=== PATIENT | female | born 1945 | race Caucasian/White ===

== ENCOUNTER 2017-08-28 07:20 | Day surgery (SDC) | payer OTHER, BC ==
[2017-08-27 10:18] VITALS: BMI 24.7
[2017-08-28 07:50] VITALS: TEMP 97.4
[2017-08-28] MEDS ORDERED: LIDOCAINE HCL/PF 2% SDV 5ML VIAL ONE (07:50)
[2017-08-28] MEDS ORDERED: PROPOFOL 20 ML ONE ×4 (07:51)
[2017-08-28 09:59] VITALS: BP 119/71; PULSE 79
--- NOTE | 2017-08-31 11:14 | PATH ---
Surgical Pathology Report Patient Name: NORMA DUTTA [facility]. Rec. #: [id number] /Age/Gender: 1945 (Age: 71) / F Account: [id number] Location: U-ENDOSCOPY Taken: 08/28/2017 Received: 08/28/2017 Reported: 08/31/2017 Physicians: Darcy Choi M.D. Specimen(s) Received A: CECAL POLYP B: PROXIMAL TRANSVERSE COLON Clinical History Preoperative diagnosis: Colon cancer screening, change in bowel habits Postoperative diagnosis: Colon polyps, diverticulosis Final Diagnosis A. COLON, CECUM, SNARE POLYPECTOMY: TUBULAR ADENOMA. B. COLON, PROXIMAL TRANSVERSE, SNARE POLYPECTOMY: COLONIC POLYP WITH SERRATED ARCHITECTURE AND FEATURES SUGGESTIVE OF SESSILE POLYP. Comment: Sessile serrated polyps are not dysplastic (adenomatous). They share morphologic features with hyperplastic polyps and, in the past, have been referred to as such. However, recent studies indicate that they harbor BRAF mutations and may represent neoplastic precursors to a subset of sporadic, microsatellite unstable colon cancers. They are generally treated and followed similar to colonic adenomas. PALOMA Grissom and NATALIA Herr [facility] 2010, 139(5):[id number]. Electronically Signed Ace Ramirez M.D. Gross Description A. Received in formalin, labeled "cecal polyp" is a acharya, irregular portion of soft tissue measuring 0.3 cm. in greatest dimension. The specimen is submitted in toto in one cassette. B. Received in formalin, labeled "proximal transverse colon" is a acharya, irregular portion of soft tissue measuring 0.2 cm. in greatest dimension. The specimen is submitted in toto in one cassette. 08/28/201708/28/2017
== END 2017-08-28 10:00 | disposition home or self-care (01) ==
LOC: JASU-ENDO 07:20
PROVIDERS: ATTEND Internal Medicine Gastroenterology
PROC: 0DBL8ZX Excision of Transverse Colon, Via Natural or Artificial Opening Endoscopic, Diagnostic (ICD-10-PCS; 2017-08-28)
PROC: 0DBH8ZX Excision of Cecum, Via Natural or Artificial Opening Endoscopic, Diagnostic (ICD-10-PCS; principal; 2017-08-28 08:00)
DX: Z12.11 Encounter for screening for malignant neoplasm of colon (principal); D12.0 Benign neoplasm of cecum; D12.3 Benign neoplasm of transverse colon; K57.30 Diverticulosis of large intestine without perforation or abscess without bleeding; K64.8 Other hemorrhoids
CPT/HCPCS: 88305-TC

== ENCOUNTER 2018-04-04 10:04 | Inpatient (IN) | payer OTHER, BC ==
[2018-04-04] MEDS ORDERED: ALBUTEROL SO4 2.5/IPRATROPIUM 0.5 INH SOL 3 ML VIAL.NEB. NEB ONE ×2 (10:34→10:38)
[2018-04-04] MEDS ORDERED: MAG HYDROX/AL HYDROX/SIMETH 30 ML UNIT-DOSE CUP PO ONE (10:34)
--- NOTE | 2018-04-04 10:34 | PDOC ---
History of Present Illness <Tenzin Reno - Last Filed: 04/04/18 15:40> - General History Source: Patient Exam Limitations: No Limitations - History of Present Illness Initial Comments: 04/04/18 10:30 72-year-old female history of hiatal hernia with reflux, anemia, here today complaining of cough nasal congestion and now difficulty swallowing. Patient states that she was seen 1 week ago and diagnosed a viral URI. She was prescribed an inhaler but was unable to fill it at that time since then she's had a worsening cough now feels irritation with deep breathing causing her to cough increased mucus production. She also describes nasal congestion this morning had some epistaxis upon blowing her nose no fever but does feel chilled no chest pain no leg swelling. Patient states she has been on ranitidine and previously was on a pump inhibitor but since has discontinued. Patient is followed by Dr. Ibarra clipper counters <Alyson Martinez - Last Filed: 04/04/18 15:45> - General Chief Complaint: Dysphagia Stated Complaint: DIFF SWALLOWING Time Seen by Provider: 04/04/18 10:29 Past History <Tenzin Reno - Last Filed: 04/04/18 15:40> - Past Medical History Anemia: Yes (PERNICIOUS ANEMIA) Asthma: No Cancer: Yes (BASAL CELL RIGHT NOSE) Cardiac Disorders: No CVA: No COPD: No CHF: No Dementia: No Diabetes: No GI Disorders: Yes (GERD HH SCHATZKI RING COLON POLYPS DIVERTICULOSIS LIPOMATOUS ILEOCECAL VALV) Disorders: No HTN: No Hypercholesterolemia: No Liver Disease: Yes (NAFLD) Seizures: No Thyroid Disease: No - Surgical History Abdominal Surgery: No Appendectomy: Yes (1964) Cardiac Surgery: No Cholecystectomy: No GI Surgery: Yes (HERNIA REPAIR AT STOMACH AND ESOPHAGUS) Lung Surgery: No Neurologic Surgery: No Orthopedic Surgery: No - Suicide/Smoking/Psychosocial Hx Smoking History: Never smoked Have you smoked in the past 12 months: No Hx Alcohol Use: Yes Drug/Substance Use Hx: No Substance Use Type: Alcohol Hx Substance Use Treatment: No <Alyson Martinez - Last Filed: 04/04/18 15:45> - Past Medical History Allergies/Adverse Reactions: Allergies Allergy/AdvReac Type Severity Reaction Status Date / Time cephalexin [From Keflex] Allergy Intermediate Hives Verified 04/04/18 10:05 alendronate sodium AdvReac Intermediate Hives Verified 04/04/18 10:05 [From Fosamax] Home Medications: Ambulatory Orders Ranitidine [Zantac -] 150 mg PO BID 06/05/16 Review of Systems - Review of Systems Constitutional: Yes: Chills. No: Diaphoresis, Fever HEENTM: Yes: Nose Bleeding, Difficulty Swallowing. No: Eye Pain Respiratory: Yes: Cough, Shortness of Breath Cardiac (ROS): No: Chest Pain, Edema ABD/GI: No: Abdominal Distended : No: Burning, Dysuria, Discharge Musculoskeletal: No: Back Pain Neurological: No: Headache All Other Systems: Reviewed and Negative <Alyson Martinez - Last Filed: 04/04/18 15:45> *Physical Exam - Vital Signs Last Vital Signs Temp Pulse Resp BP Pulse Ox 98.1 F 75 18 133/58 98 04/04/18 14:58 04/04/18 14:58 04/04/18 14:58 04/04/18 14:58 04/04/18 14:58 <Tenzin Reno - Last Filed: 04/04/18 15:40> - Vital Signs Last Vital Signs Temp Pulse Resp BP Pulse Ox 98.6 F 84 18 131/61 94 L 04/04/18 10:05 04/04/18 10:05 04/04/18 10:05 04/04/18 10:05 04/04/18 10:05 - Physical Exam General Appearance: Yes: Nourished HEENT: positive: THOMAS, Pharynx Normal, Other (bilateral nasal septum with recent skin breakdown, no active bleeding) Neck: positive: Trachea midline Respiratory/Chest: positive: Lungs Clear, Other (faint crackles left lung base) . negative: Respiratory Distress, Accessory Muscle Use Cardiovascular: positive: Regular Rhythm, Regular Rate, S1, S2. negative: Edema Gastrointestinal/Abdominal: positive: Normal Bowel Sounds, Flat, Soft. negative : Tender Extremity: positive: Normal Capillary Refill, Normal Inspection Integumentary: positive: Normal Color, Dry, Warm Neurologic: positive: Fully Oriented, Alert, Normal Mood/Affect <Alyson Martinez - Last Filed: 04/04/18 15:45> Heart Score/ECG Review #1 General ECG Interpretation: Sinus Rhythm (79), Normal Rate, Normal Intervals, No acute ischemic changes <Alyson Martinez - Last Filed: 04/04/18 15:45> ED Treatment Course - LABORATORY CBC & Chemistry Diagram: 04/04/18 12:47 04/04/18 12:47 - ADDITIONAL ORDERS Additional order review: Laboratory Results 04/04/18 04/04/18 13:08 12:47 Sodium 125 L Potassium 3.8 Chloride 93 L Carbon Dioxide 24 Anion Gap 8 BUN 12 Creatinine 0.7 Creat Clearance w eGFR > 60 Random Glucose 119 H Calcium 7.5 L Total Bilirubin 1.8 H AST 47 H D ALT 28 D Alkaline Phosphatase 112 H D Total Protein 5.5 L Albumin 2.6 L Lipase 62 L Urine Color Yellow Urine Appearance Hazy Urine pH 5.5 Ur Specific [place] < 1.005 L Urine Protein Negative Urine Glucose (UA) Negative Urine Ketones 1+ H Urine Blood 1+ H Urine Nitrite Negative Urine Bilirubin Negative Urine Urobilinogen 1.0 Ur Leukocyte Esterase Negative Urine RBC 5-10 Urine WBC 0-2 Ur Epithelial Cells Few Urine Bacteria Few 04/04/18 12:47 RBC 3.39 L MCV 95.9 MCHC 34.8 RDW 12.9 MPV 7.7 Neutrophils % 10.0 L Lymphocytes % 53.0 H Monocytes % 37.0 H - Medications Given in the ED: ED Medications Discontinued Medications Generic Name Dose Route Start Last Admin Trade Name Kasey PRN Reason Stop Dose Admin Acetaminophen 650 mg 04/04/18 15:15 04/04/18 15:19 Tylenol - PO 04/04/18 15:16 Not Given ONCE ONE Al Hydroxide/Mg Hydroxide 30 ml 04/04/18 10:34 04/04/18 10:44 Mylanta Oral Suspension - PO 04/04/18 10:35 30 ml ONCE ONE Administration Albuterol/Ipratropium 1 amp 04/04/18 10:34 04/04/18 10:57 Duoneb - NEB 04/04/18 10:35 1 amp ONCE ONE Administration Famotidine 20 mg 04/04/18 10:35 04/04/18 10:45 Pepcid - PO 04/04/18 10:36 20 mg ONCE ONE Administration Lidocaine HCl 10 ml 04/04/18 10:35 04/04/18 10:45 Xylocaine 2% Viscous Oral - MM 04/04/18 10:36 10 ml ONCE ONE Administration Ondansetron HCl 4 mg 04/04/18 12:40 04/04/18 12:54 Zofran Injection IVPUSH 04/04/18 12:41 Not Given ONCE ONE Sodium Chloride 1,000 ml 04/04/18 12:40 04/04/18 12:54 Normal Saline - IV 04/04/18 12:41 1,000 ml ONCE ONE Administration <Tenzin Reno - Last Filed: 04/04/18 15:40> - LABORATORY CBC & Chemistry Diagram: 04/04/18 12:47 04/04/18 12:47 <Alyson Martinez - Last Filed: 04/04/18 15:45> Medical Decision Making - Medical Decision Making 04/04/18 3:17pm Call placed to Dr. Humble Vargas's answering service, ID, awaiting call back. 3:40pm Call returned from Dr. Humble Vargas, case was discussed. <Tenzin Reno - Last Filed: 04/04/18 15:40> - Medical Decision Making 04/04/18 10:33 Differential diagnosis includes viral URI, postnasal drip from the ALLERGIC rhinitis or viral URI, reflux causing esophageal and vocal cord irritation. Patient denies any new medications which could cause a chronic cough, pneumonia. Plan chest x-ray PA and lateral bronchodilators TEDs bronchospastic cough, antacids and reassess. 04/04/18 12:38 pt cxr unremarkable. pt states has not been able to eat or drink for 3 days. taking only small liquids. last endoscopy was [address] choi. h/o failed hiatal hernia repair. will require admission for inability to tolerate po , will d/w dr. rod and dr. choi. 04/04/18 12:46 pt was seen recently in ED one week ago for similar sxs, cough, fatigue, myalgia. was noted to have hyponatremia at that time, low wbc. plan to repeat labs r/o worsening hyponatremia, renal failure. may require barium swallow on admission r/o gastric outlit obstruction or esophageal stricture/ narrowin. 04/04/18 13:43 d/w dr. randolph, will accept pt at [facility], told to admit to Dr. Rod, requesting ct c/a/p r/o mass prior to transfer. pt ct ordered. d/w daughter and pt. d/w dr. Rodriguez ( covering for GI dr. Choi), told to keep npo post midnight. trasnfer to [facility]. 04/04/18 15:44 due to concerns for nuetropenia in setting of cough and chills, decision to cover for possible pneumonia clinically. recommend [place] ID.l oliver cover with aztreonam and vanco . ct chest pending. cultures ordered. <Alyson Martinez - Last Filed: 04/04/18 15:45> *DC/Admit/Observation/Transfer - Attestations Scribe Attestion: 04/04/18 15:30 Documentation prepared by Tenzin Reno, acting as medical supply technician for Alyson Martinez MD. <Tenzin Reno - Last Filed: 04/04/18 15:40> - Discharge Dispostion Decision to Admit order: Yes <Alyson Martinez - Last Filed: 04/04/18 15:45> Diagnosis at time of Disposition: Hyponatremia, Neutropenia - Discharge Dispostion Condition at time of disposition: Stable - Referrals Referrals: Braulio Rod MD [Primary Care Provider] - - Patient Instructions - Post Discharge Activity
[2018-04-04] MEDS ORDERED: LIDOCAINE VISCOUS 2% ORAL/TOP 20 ML UNIT-DOSE CUP MM ONE (10:35)
[2018-04-04] MEDS ORDERED: FAMOTIDINE 20 MG TABLET PO ONE (10:35)
[2018-04-04] MEDS ORDERED: FAMOTIDINE 20 MG TABLET ONE (10:38)
[2018-04-04] MEDS ORDERED: LIDOCAINE VISCOUS 2% ORAL/TOP 20 ML UNIT-DOSE CUP ONE (10:38)
[2018-04-04] MEDS ORDERED: MAG HYDROX/AL HYDROX/SIMETH 30 ML UNIT-DOSE CUP ONE (10:38)
[2018-04-04] MEDS ORDERED: SODIUM CHLORIDE 0.9% 1000 ML INFUS.BAG IV ONE (12:40)
[2018-04-04] MEDS ORDERED: ONDANSETRON 4 MG/2 ML VIAL IVPUSH ONE (12:40)
[2018-04-04] MEDS ORDERED: ONDANSETRON 4 MG/2 ML VIAL ONE (12:52)
[2018-04-04 13:08] LABS: HEMOGLOBIN 11.3 GM/dl (10.7-15.3)
[2018-04-04 13:16] LABS: HEMATOCRIT 32.5 % (32.4-45.2); MCH 33.4 pg (25.7-33.7); MCHC 34.8 g/dl (32.0-36.0); MEAN CELL VOLUME 95.9 fl (80-96); MEAN PLT VOLUME 7.7 fl (7.5-11.1); RBC 3.39 M/mm3 (3.60-5.2); RDW 12.9 % (11.6-15.6)
[2018-04-04 13:18] LABS: ALBUMIN 2.6 g/dl (3.5-5.0); ALK PHOS 112 U/L (32-92); ANION GAP 8 (8-16); BILIRUBIN,TOTAL 1.8 mg/dl (0.2-1.0); BLOOD UREA NITROGEN 12 mg/dl (7-18); CALCIUM 7.5 mg/dl (8.4-10.2); CHLORIDE 93 mmol/L (98-107); CO2 24 mmol/L (22-28); CREATININE 0.7 mg/dl (0.6-1.3); GLUCOSE,RANDOM 119 mg/dl (74-106); POTASSIUM 3.8 mmol/L (3.5-5.1); SGOT/AST 47 U/L (10-42); SGPT/ALT 28 U/L (10-40); SODIUM 125 mmol/L (136-145); TOT PROT 5.5 g/dl (6.4-8.3)
[2018-04-04 13:38] LABS: URINE APPEARANCE HAZY; URINE BILIRUBIN NEGATIVE (NEGATIVE); URINE COLOR YELLOW; URINE GLUCOSE (UA) NEGATIVE (NEGATIVE); URINE KETONE 1+ (NEGATIVE)
[2018-04-04 13:39] LABS: PH,URINE 5.5 (4.5-8); URINE LEUK ESTERASE NEGATIVE (NEGATIVE); URINE NITRITE NEGATIVE (NEGATIVE); URINE PROTEIN NEGATIVE (NEGATIVE)
[2018-04-04 13:46] LABS: PLATELET COUNT 62 K/MM3 (134-434)
[2018-04-04 13:51] LABS: EPI CELLS FEW /HPF; URINE WBC 0-2 (0-5)
[2018-04-04 13:52] LABS: URINE BACTERIA FEW /hpf (NEGATIVE)
[2018-04-04 14:08] LABS: LIPASE 62 U/L (73-393)
[2018-04-04] MEDS ORDERED: AZTREONAM 1 GM in DEXTROSE 5%-WATER - 50 ML IVPB ONE (14:52)
--- NOTE | 2018-04-04 15:01 | HP ---
Admitting History and Physical - Primary Care Physician PCP: Braulio Velazquez - Admission Chief Complaint: My throat is hurting History of Present Illness: 72 yrs old F PMH of chronic Thrombocytopenia and Neutrogena since 2005 F/U with Dr Stearns last TWBC was 2.5 K 1 month ago usual platelet count around 100 K , also H/o Hital hernia failed fundoplication 3 yrs ago, not on any medication present with sever throat pain, , painful swallowing, nausea, vomiting cough with watery diarrhea and chills, in the Ed patient remained symptomatic couldn' t tolerate PO w/u shows Hyponatremia, dehydration and Neutropenia with worsenong thrombocytopenia, admitted for further evaluation and management, no C /O haed ache, spontaneous bleeding, dysuria or chnage in [place]. History Source: Patient Limitations to Obtaining History: No Limitations - Past Medical History Gastrointestinal: Yes: GERD Heme/Onc: Yes: Thrombocytopenia - Past Surgical History Past Surgical History: Yes: Appendectomy, , Upper Endoscopy - Smoking History Smoking history: Never smoked Have you smoked in the past 12 months: No - Alcohol/Substance Use Hx Alcohol Use: Yes - Social History Usual Living Arrangement: Yes: Alone Home Medications - Allergies Allergies/Adverse Reactions: Allergies Allergy/AdvReac Type Severity Reaction Status Date / Time cephalexin [From Keflex] Allergy Intermediate Hives Verified 04/04/18 10:05 alendronate sodium AdvReac Intermediate Hives Verified 04/04/18 10:05 [From Fosamax] - Home Medications Home Medications: Ambulatory Orders Ranitidine [Zantac -] 150 mg PO BID 06/05/16 Family Disease History - Family Disease History Family History: Unremarkable (No Hematological) Physical Examination Vital Signs: Vital Signs Temperature 98.6 F 04/04/18 10:05 Pulse Rate 84 04/04/18 10:05 Respiratory Rate 18 04/04/18 10:05 Blood Pressure 131/61 04/04/18 10:05 O2 Sat by Pulse Oximetry (%) 94 L 04/04/18 10:05 Constitutional: Yes: No Distress, Calm, Anxious Eyes: Yes: Conjunctiva Clear, EOM Intact. No: Cataracts, Diplopia, PERRL, Sclera Icterus HENT: Yes: Epistaxis (Rt Nostril), Hoarseness, Pharyngeal Erythema. No: Atraumatic, Normocephalic, Drooling, Tonsillar Exudate Neck: Yes: Supple, Trachea Midline. No: Decreased ROM, Lymphadenopathy, Tenderness Cardiovascular: Yes: Regular Rate and Rhythm, S1, S2. No: Bruit, JVD, Murmur Respiratory: Yes: Regular, CTA Bilaterally Gastrointestinal: Yes: Normal Bowel Sounds, Soft Musculoskeletal: No: Back Pain, Joint Stiffness, Joint Swelling Extremities: No: Calf Tenderness Edema: No Peripheral Pulses: Left Doralis Pedis: 1+, Right Dorsalis Pedis: 1+ Neurological: Yes: Alert, Oriented, Cran Nerves II-XII Intact. No: Aphasia, Asterixis, Ataxia ...Motor Strength: WNL, LUE, LLE, RUE, RLE Labs: CBC, BMP 04/04/18 12:47 04/04/18 12:47 Laboratory Results - last 24 hr 04/04/18 04/04/18 04/04/18 12:47 12:47 13:08 WBC 1.0 L* RBC 3.39 L Hgb 11.3 Hct 32.5 D MCV 95.9 MCH 33.4 MCHC 34.8 RDW 12.9 Plt Count 62 L MPV 7.7 Absolute Neuts (auto) 0.1 Neutrophils % 10.0 L Neutrophils % (Manual) 10.0 L Lymphocytes % 53.0 H Lymphocytes % (Manual) 53.0 H Monocytes % 37.0 H Monocytes % (Manual) 37 H* Hypochromia 1+ Sodium 125 L Potassium 3.8 Chloride 93 L Carbon Dioxide 24 Anion Gap 8 BUN 12 Creatinine 0.7 Creat Clearance w eGFR > 60 Random Glucose 119 H Calcium 7.5 L Total Bilirubin 1.8 H AST 47 H D ALT 28 D Alkaline Phosphatase 112 H D Total Protein 5.5 L Albumin 2.6 L Lipase 62 L Urine Color Yellow Urine Appearance Hazy Urine pH 5.5 Ur Specific [place] < 1.005 L Urine Protein Negative Urine Glucose (UA) Negative Urine Ketones 1+ H Urine Blood 1+ H Urine Nitrite Negative Urine Bilirubin Negative Urine Urobilinogen 1.0 Ur Leukocyte Esterase Negative Urine RBC 5-10 Urine WBC 0-2 Ur Epithelial Cells Few Urine Bacteria Few Imaging - Results Chest X-ray: Report Reviewed (Normal) X-ray: Report Reviewed Cat Scan: Report Reviewed (Chest Hital Hernia CT abd; Diverticulosis Spleenomegaly) Problem List - Problems (1) Neutropenia Assessment/Plan: Patient has Neutropenia ANC 100 , Neutropenic precautions, Hematology consult considering H/O fever will cover with IV Aztrenam and Vancomycin till we get ID input and Hematology input Code(s): D70.9 - NEUTROPENIA, UNSPECIFIED (2) Hyponatremia Assessment/Plan: Sr Na 125 will F/U U lytes, U Osmolality, Plasma uric acid plasm osmolality, TSH and Uric acid IV NS F./U BMP in am Code(s): E87.1 - HYPO-OSMOLALITY AND HYPONATREMIA (3) Cough Assessment/Plan: Severe tracheophyringitis most likely viral etiology symptomatic treatment Code(s): R05 - COUGH (4) Throat pain Assessment/Plan: Due to sever phyringitis F/U clinically Code(s): R07.0 - PAIN IN THROAT (5) Diarrhea Assessment/Plan: C/O wtery diarrhe most likely part of viral sicjkness syndrome will F/u Cultures Code(s): R19.7 - DIARRHEA, UNSPECIFIED (6) Thrombocytopenia Assessment/Plan: Worsening thrombocytopenia from base line F/U platelet count no active bleeding Code(s): D69.6 - THROMBOCYTOPENIA, UNSPECIFIED
[2018-04-04] MEDS ORDERED: ACETAMINOPHEN 325 MG TABLET (FP) ONE (15:07)
[2018-04-04] MEDS ORDERED: ACETAMINOPHEN 325 MG TABLET (FP) PO ONE (15:15)
[2018-04-04] MEDS ORDERED: VANCOMYCIN 1 GRAM (PRE-DOCKED) 1,000 MG/250 ML BAG IVPB ONE (15:44)
[2018-04-04] MEDS ORDERED: ACETAMINOPHEN 1000 MG/100 ML VIAL (NON FORMULARY) IVPB ONE (15:56)
[2018-04-04] MEDS ORDERED: ACETAMINOPHEN INJECTION 100 ML IVPB ONE (15:56)
[2018-04-04] MEDS ORDERED: VANCOMYCIN 1,000 MG VIAL (RESTRICTED TO ID ONLY) ONE (16:19)
[2018-04-04 16:26] LABS: URINE CREATININE 42.7 mg/dL (20-320)
[2018-04-04] MEDS ORDERED: ONDANSETRON 4 MG/2 ML VIAL IVPUSH PRN (22:24)
[2018-04-04] MEDS ORDERED: ACETAMINOPHEN 1000 MG/100 ML VIAL (NON FORMULARY) IVPB PRN (22:24)
[2018-04-04] MEDS ORDERED: DEXTROSE 5%-0.45% SALINE 1,000 ML IV SCH (22:30)
[2018-04-05 00:29] LABS: URIC ACID 3.9 mg/dL (2.6-7.2)
[2018-04-05] MEDS: guaiFENesin/D-METHORPHAN HB 10 ML UNIT-DOSE CUPS PO PRN (00:39)
[2018-04-05] MEDS: AZTREONAM 1 GM in DEXTROSE 5%-WATER - 50 ML IVPB SCH ×2 (01:28→09:27)
[2018-04-05] MEDS ORDERED: AZTREONAM 1 GM in DEXTROSE 5%-WATER - 50 ML IVPB SCH (02:00)
[2018-04-05 09:06] LABS: BASO % 0.5 % (0-2.0); EOS % 0.3 % (0-4.5); HEMATOCRIT 32.1 % (32.4-45.2); HEMOGLOBIN 10.9 GM/dl (10.7-15.3); LYMPH % 49.3 % (8-40); MCH 32.9 pg (25.7-33.7); MEAN CELL VOLUME 96.8 fl (80-96); MEAN PLT VOLUME 7.9 fl (7.5-11.1); MONO % 34.7 % (3.8-10.2); NEUT % 15.2 % (42.8-82.8); PLATELET COUNT 50 K/MM3 (134-434); RBC 3.32 M/mm3 (3.60-5.2)
[2018-04-05 09:15] LABS: INR 1.3 (0.82-1.09); PROTHROMBIN TIME (PATIENT) 14.5 SEC (10.2-13.0)
[2018-04-05 09:18] LABS: ANION GAP 7 (8-16); BLOOD UREA NITROGEN 9 mg/dl (7-18); CALCIUM 7.4 mg/dl (8.4-10.2); CHLORIDE 99 mmol/L (98-107); CO2 21 mmol/L (22-28); CREATININE 0.7 mg/dl (0.6-1.3); GLUCOSE,RANDOM 135 mg/dl (74-106); POTASSIUM 3.7 mmol/L (3.5-5.1); SODIUM 127 mmol/L (136-145)
[2018-04-05 09:57] LABS: WHITE BLOOD COUNT 0.8 K/mm3 (4.0-10.8)
[2018-04-05] MEDS ORDERED: POTASSIUM CHLORIDE 10 MEQ in DEXTROSE 5%-NORMAL SALINE 1,000 ML IVPB SCH (11:00)
[2018-04-05] MEDS ORDERED: PT OWN MED DRAWER 7, Y5N ONE (11:33)
--- NOTE | 2018-04-05 11:39 | PN ---
Physical Exam: contacted by Dr Velazquez at 1134, requesting hospitalist to resume care of patient SUBJECTIVE: Patient seen and examined, resting comfortably in the bedside, denies any chest pain or shortness of breath, reports generalized malaise OBJECTIVE: Patient is a 72 yrs old female, with a past medical history of chronic Thrombocytopenia and Hital hernia, past surgical history of failed fundoplication 3 yrs ago. patient was admitted from the emergency for neutropenic fever.Vital Signs Period Temp Pulse Resp BP Sys/Ackerman Pulse Ox Last 24 Hr 98.1 F-103.4 F 75-96 17-19 96-133/49-71 93-98 GENERAL: The patient is awake, alert, and fully oriented, in no acute distress. HEAD: Normal with no signs of trauma. EYES: PERRL, extraocular movements intact, sclera anicteric, conjunctiva clear. No ptosis. ENT: Ears normal, nares patent, oropharynx clear, erythema, without exudates, moist mucous membranes. NECK: Trachea midline, full range of motion, supple. LUNGS: Breath sounds equal, clear to auscultation bilaterally, no wheezes, no crackles, no accessory muscle use. HEART: Regular rate and rhythm, S1, S2 without murmur, rub or gallop. ABDOMEN: Soft, nontender, nondistended, normoactive bowel sounds, no guarding, no rebound, no hepatosplenomegaly, no masses. EXTREMITIES: 2+ pulses, warm, well-perfused, no edema. NEUROLOGICAL: Cranial nerves II through XII grossly intact. Normal speech, gait not observed. PSYCH: Normal mood, normal affect. SKIN: Warm, dry, normal turgor, no rashes or lesions noted Laboratory Results - last 24 hr 04/04/18 04/04/18 04/04/18 12:47 12:47 13:08 WBC 1.0 L* RBC 3.39 L Hgb 11.3 Hct 32.5 D MCV 95.9 MCH 33.4 MCHC 34.8 RDW 12.9 Plt Count 62 L MPV 7.7 Absolute Neuts (auto) 0.1 Neutrophils % 10.0 L Neutrophils % (Manual) 10.0 L Lymphocytes % 53.0 H Lymphocytes % (Manual) 53.0 H Monocytes % 37.0 H Monocytes % (Manual) 37 H* Eosinophils % Basophils % Hypochromia 1+ PT with INR INR Sodium 125 L Potassium 3.8 Chloride 93 L Carbon Dioxide 24 Anion Gap 8 BUN 12 Creatinine 0.7 Creat Clearance w eGFR > 60 Random Glucose 119 H Lactic Acid Uric Acid 3.9 Calcium 7.5 L Total Bilirubin 1.8 H AST 47 H D ALT 28 D Alkaline Phosphatase 112 H D Total Protein 5.5 L Albumin 2.6 L Lipase 62 L Urine Color Yellow Urine Appearance Hazy Urine pH 5.5 Ur Specific [place] < 1.005 L Urine Protein Negative Urine Glucose (UA) Negative Urine Ketones 1+ H Urine Blood 1+ H Urine Nitrite Negative Urine Bilirubin Negative Urine Urobilinogen 1.0 Ur Leukocyte Esterase Negative Urine RBC 5-10 Urine WBC 0-2 Ur Epithelial Cells Few Urine Bacteria Few Ur Random Sodium Urine Creatinine 04/04/18 04/04/18 04/05/18 16:03 16:50 08:00 WBC 0.8 L* RBC 3.32 L Hgb 10.9 Hct 32.1 L MCV 96.8 H MCH 32.9 MCHC 34.0 RDW 13.0 Plt Count 50 L MPV 7.9 Absolute Neuts (auto) 0.1 Neutrophils % 15.2 L Neutrophils % (Manual) Lymphocytes % 49.3 H Lymphocytes % (Manual) Monocytes % 34.7 H Monocytes % (Manual) Eosinophils % 0.3 Basophils % 0.5 Hypochromia PT with INR INR Sodium Potassium Chloride Carbon Dioxide Anion Gap BUN Creatinine Creat Clearance w eGFR Random Glucose Lactic Acid 2.0 Uric Acid Calcium Total Bilirubin AST ALT Alkaline Phosphatase Total Protein Albumin Lipase Urine Color Urine Appearance Urine pH Ur Specific [place] Urine Protein Urine Glucose (UA) Urine Ketones Urine Blood Urine Nitrite Urine Bilirubin Urine Urobilinogen Ur Leukocyte Esterase Urine RBC Urine WBC Ur Epithelial Cells Urine Bacteria Ur Random Sodium < 28 L Urine Creatinine 42.7 04/05/18 04/05/18 08:00 08:00 WBC RBC Hgb Hct MCV MCH MCHC RDW Plt Count MPV Absolute Neuts (auto) Neutrophils % Neutrophils % (Manual) Lymphocytes % Lymphocytes % (Manual) Monocytes % Monocytes % (Manual) Eosinophils % Basophils % Hypochromia PT with INR 14.5 H INR 1.30 H Sodium 127 L Potassium 3.7 Chloride 99 Carbon Dioxide 21 L Anion Gap 7 L BUN 9 Creatinine 0.7 Creat Clearance w eGFR > 60 Random Glucose 135 H Lactic Acid Uric Acid Calcium 7.4 L Total Bilirubin AST ALT Alkaline Phosphatase Total Protein Albumin Lipase Urine Color Urine Appearance Urine pH Ur Specific [place] Urine Protein Urine Glucose (UA) Urine Ketones Urine Blood Urine Nitrite Urine Bilirubin Urine Urobilinogen Ur Leukocyte Esterase Urine RBC Urine WBC Ur Epithelial Cells Urine Bacteria Ur Random Sodium Urine Creatinine Active Medications Generic Name Dose Route Start Last Admin Trade Name Freq PRN Reason Stop Dose Admin Acetaminophen 1,000 mg 04/04/18 22:24 04/05/18 01:29 Ofirmev Injection - IVPB 1,000 mg Q6H PRN Administration FEVER Guaifenesin 10 ml 04/04/18 14:56 04/05/18 00:39 Robitussin Dm - PO 10 ml Q6H PRN Administration COUGH Aztreonam 1 gm/ Dextrose 50 mls @ 100 mls/hr 04/05/18 02:00 IVPB Q8H-IV TRAE Protocol Potassium Chloride 10 meq/ 1,005 mls @ 75 mls/hr 04/05/18 11:00 Dextrose/Sodium Chloride IVPB Q13H TRAE Ondansetron HCl 4 mg 04/04/18 22:24 Zofran Injection IVPUSH Q6H PRN NAUSEA AND/OR VOMITING IMAGING chest/abd/pelvis ct: minimal atelactaic changes of the right lower lobe, mild pleural thickening in the left lung, moderate sized hiatus hernia, mild spleenomegly, ASSESSMENT/PLAN: 1) heme/onc neutropenic fever thrombocytopenia - pending blood, urine, and stool cultures, continue empiric coverage with vanc and aztrenoman, appreciate ID input (Dr Jensen) - patient has small grandchildren, will order throat culture, rsv and flu - lyme, ehricleia, and babesia ordered - appreciate oncology input, Dr Stearns, patient's private oncologist 2) pulm cough - likely secondary to microaspiration vs viral uri, ct of chest/abd/pelvis reviewed - start protonix - close monitoring of spo1 3) gI diarherra - resolved, likely viral f/u stool cultures - start probiotic f/e/n - hyponatremia secondary to dehydration slowly improving - clear liquid diet ppx - no ac secondary to thrombocytopenia - mechanical ac only - physical therapy - protonix dispo: pt requires inpatient admission Visit type - Emergency Visit Emergency Visit: Yes ED Registration Date: 04/04/18 Care time: The patient presented to the Emergency Department on the above date and was hospitalized for further evaluation of their emergent condition. - New Patient This patient is new to me today: Yes Date on this admission: 04/05/18 - Critical Care Critical Care patient: No - Discharge Referral Referred to [facility] Med [facility] No
[2018-04-05] MEDS ORDERED: PANTOPRAZOLE 40 MG TABLET (FP) PO SCH (14:30)
[2018-04-05] MEDS ORDERED: D5-NS + 20 MEQ KCL - 20 MEQ/1,000 ML INFUS.BAG IV SCH (14:45)
--- NOTE | 2018-04-05 14:47 | CONSULT ---
Admitting History and Physical - Primary Care Physician PCP: Larisa Wellington - Admission History of Present Illness: Per EMR: History of Present Illness: 72 yrs old F PMH of chronic Thrombocytopenia and Neutrogena since 2005 F/U with Dr Stearns last TWBC was 2.5 K 1 month ago usual platelet count around 100 K , also H/o Hital hernia failed fundoplication 3 yrs ago, not on any medication present with severe throat pain, , painful swallowing, nausea, vomiting cough with watery diarrhea and chills, in the Ed patient remained symptomatic couldn' t tolerate PO w/u shows Hyponatremia, dehydration and Neutropenia with worsenong thrombocytopenia, admitted for further evaluation and management, no C /O haed ache, spontaneous bleeding, dysuria or chnage in MS. Pt reports frequent reflux, dry cough x 2 weeks with increased reflux while coughing. She does drink 2 cups of caffienated coffee daily, and low acid OJbut denies spicy foods, mints,jose, drinking soda.She eats 2 meals daily and does not recline after eating. Pt on Protonix IV. History Source: Patient, Family Member, Medical Record Limitations to Obtaining History: No Limitations - Past Medical History Gastrointestinal: Yes: GERD ...: No Heme/Onc: Yes: Thrombocytopenia - Past Surgical History Past Surgical History: Yes: Appendectomy, , Upper Endoscopy - Smoking History Smoking history: Never smoked Have you smoked in the past 12 months: No - Alcohol/Substance Use Hx Alcohol Use: Yes History - Admission Reason For Visit: HYPO-OSMOLALITY AND HYPONATREMIA,NEUTROPENIA, UNSP - Diagnostics CT Scan: Report Reviewed (chest/abd/pelvis ct: minimal atelactaic changes of the right lower lobe, mild pleural thickening in the left lung, moderate sized hiatus hernia, mild spleenomegly,) - General Mental Status: Alert and Oriented, Awake and Alert, Able to Follow Commands Attention: Intact Ability to Follow Directions: Excellent - Hearing Hearing: Normal Hearing Aide: No With Patient: No Speech Evaluation - Communication Primary Language: GERMAN Communication: Yes: Within Normal Limits - Speech Production Intelligibility: Yes: WNL - Speech Characteristics Voice Loudness: Normal Voice Pitch: Yes: Normal Voice Phonatory-based Quality: Yes: Normal Speech Pattern: Normal Speech Clarity: < 50% Articulation: Yes: Precise Rate of Speech: Intact - Language/Verbal Expression Able to Respond to Simple Queries: Yes: WNL Able to Communicate Wants and Needs: Yes: WNL Functional Communication Status: Yes: WNL - Swallow Evaluation/Bedside Assessment Current Nutritional Intake: Clear Liquids Oral Secretions: Yes: WFL Dentition: Yes: Adequate Facial Symmetry at Rest: Symmetrical Facial Symmetry on Retraction: Symmetrical Against Resistance Opening: Normal Against Resistance Closing: Normal Pucker Lips: Normal Smile: Normal Lingual Speed of Movement: Normal Lingual Movement Strgth Against Opposition: Normal Lingual Movement Characteristics: Normal Laryngeal Elevation: WFL Laryngeal Movement: Able to Palpate Bolus Size: WFL Labial Seal: WFL Chewing: WFL Oral Prep Time: WFL A-P Transit: WFL Pocketing: None Timing of Swallow: WFL Coughing/Throat Clear: Yes (dry cough) Recommendations - Speech Evaluation, Impression/Plan Impression: h/o fundoplication failed, sutures out. Dry cough suspected unrelated to oropharyngeal dysphagia.Pt tolerated mario cracker and applesauce. Reflux/Laryngopharyngeal reflux a possibility. Cough suppresant? - Dysphagia Impressions/Plan Dysphagia Impressions: Ongoing Evaluation *Silent aspiration: cannot be R/O at bedside Dysphagia Treatment Plan: OOB for meals, OOB for 1 h. after meals, Other (No PO intake within 2-3 hours of bedtime. Several small meals throughout the day, upright.) Recommendations: Other (f/u GI.Consider Acevedo to quantify reflux?) - Recommendations Diet Consistency: Regular (as tolerated and desired.) Medication Administration: Whole with water Liquids: Thin Liquids
[2018-04-05] MEDS ORDERED: VANCOMYCIN 1 GRAM (PRE-DOCKED) 1,000 MG/250 ML BAG IVPB SCH (15:00)
--- NOTE | 2018-04-05 15:21 | PN ---
Progress Note (short form) - Note Progress Note: ID 72 year old female history of neutropenia for years followed by Dr Stearns presents with 1-2 weeks history of malaise dry couph difficulty swallowing fever and chills. Seen recently in [facility] ER and told of possible Viral illness and sent home. Her WBC counts around 4.0 with normal platelets and ANC around [id number]. Bone marrows never showed MDS. She has been treated for B12 and folate deficiency and is on supplement. She denies rash headaches sore throat abd pain vomiting joint pains. She lives in [place] and has been bitten by ticks in the past. Walks her dog outdoors daily. No ill contacts travel hobbies. Here 103 ! and neutropenic and thrmbocytopenic Selected Entries 04/04/18 04/04/18 04/05/18 15:59 17:03 11:36 Temperature 103.4 F H 100.8 F H Respiratory Rate Blood Pressure O2 Sat by Pulse 93 L Oximetry (%) 04/05/18 14:10 Temperature 98.2 F Respiratory 18 Rate Blood Pressure 103/41 O2 Sat by Pulse 97 Oximetry (%) HEENT no thrush erythema Lung Clear Cor S1 S2 RR Abd Soft nontender no organomegaly Ext NO edema Neuro Nonfocal Lymph Rt axillary node Microbiology 04/05/18 14:14 Throat Group A Strep Rapid Antigen - Final NEGATIVE FOR THE ANTIGEN OF BETA HEMOLYTIC STREP GROUP A Laboratory Tests 04/04/18 04/04/18 04/04/18 12:47 12:47 13:08 WBC 1.0 L* RBC Hgb 11.3 Hct 32.5 D Plt Count 62 L Neutrophils % 10.0 L Neutrophils % (Manual) 10.0 L Lymphocytes % 53.0 H Monocytes % 37.0 H Hypochromia 1+ BUN 12 Creatinine 0.7 Total Bilirubin 1.8 H AST 47 H D Alkaline Phosphatase 112 H D Urine RBC 5-10 Urine WBC 0-2 Babesia microti IgG Ab Babesia microti IgM Ab E. chaffeensis IgG Ab E. chaffeensis IgM Ab 04/05/18 04/05/18 08:00 14:42 WBC 0.8 L* RBC 3.32 L Hgb Hct 32.1 L Plt Count 50 L Neutrophils % 15.2 L Neutrophils % (Manual) Lymphocytes % 49.3 H Monocytes % 34.7 H Hypochromia BUN Creatinine Total Bilirubin AST Alkaline Phosphatase Urine RBC Urine WBC Babesia microti IgG Ab Pending Babesia microti IgM Ab Pending E. chaffeensis IgG Ab Pending E. chaffeensis IgM Ab Pending Assessment Immunocompromised host with recent onset of fever 103 chills couph and pancytopenia with profound neutropenia suggests supperimposed infection. Diff Dx includes: Bacterial infection unknown source Viral infection EBV CMV Parvo Tick related illness includes Babesiosis Human Anaplasmosis and of cource Lyme ? coinfection Plan? Ceph allergy She denies 1. BLood cultures 2 and urine culture 2.Babesia smears 2 and HGA LYME serology 3. CMV EBV Parvo serology 4. Meropenem and Doxycycline 5. Heme evaluation 6. Derrick Vargas MD Problem List - Problems (1) FUO (fever of unknown origin) Code(s): R50.9 - FEVER, UNSPECIFIED (2) Neutropenia Code(s): D70.9 - NEUTROPENIA, UNSPECIFIED (3) Thrombocytopenia Code(s): D69.6 - THROMBOCYTOPENIA, UNSPECIFIED
[2018-04-05] MEDS: PANTOPRAZOLE SODIUM 40 MG VIAL IVPB SCH (15:33)
[2018-04-05] MEDS: LACTOBACILLUS ACIDOPHILUS 1 TABLET PO SCH (15:36)
--- NOTE | 2018-04-05 17:40 | CONSULT ---
Consult Consult Specialty:: Hematology Referred by:: - History of Present Illness Chief Complaint: Admitted with fever, leukopenia History of Present Illness: 72 year old female history of mild leukopenia for years presents with 1-2 weeks history of malaise dry couph difficulty swallowing,sore throat fever and chills. Seen recently in [facility] ER and told of possible Viral illness and sent home. Her WBC counts base line around 4.0 with normal platelets and ANC around [id number]. - Past Medical History Pulmonary: Yes: Other (cough) Gastrointestinal: Yes: GERD ...: No - Past Surgical History Past Surgical History: Yes: Appendectomy, , Upper Endoscopy - Alcohol/Substance Use Hx Alcohol Use: Yes - Smoking History Smoking history: Never smoked Have you smoked in the past 12 months: No Home Medications - Allergies Allergies/Adverse Reactions: Allergies Allergy/AdvReac Type Severity Reaction Status Date / Time cephalexin [From Keflex] Allergy Intermediate Hives Verified 04/04/18 10:05 alendronate sodium AdvReac Intermediate Hives Verified 04/04/18 10:05 [From Fosamax] - Home Medications Home Medications: Ambulatory Orders Ranitidine [Zantac -] 150 mg PO BID 06/05/16 Family Disease History - Family Disease History Family History: Unable to Obtain Review of Systems - Review of Systems Constitutional: reports: Fever, Weakness Respiratory: reports: Cough Gastrointestinal: reports: Nausea Genitourinary: reports: No Symptoms Musculoskeletal: reports: No Symptoms Neurological: reports: No Symptoms Physical Exam Vital Signs: Vital Signs Temperature 98.2 F 04/05/18 14:10 Pulse Rate 85 04/05/18 14:10 Respiratory Rate 18 04/05/18 14:10 Blood Pressure 103/41 04/05/18 14:10 O2 Sat by Pulse Oximetry (%) 97 04/05/18 14:10 Constitutional: Yes: No Distress HENT: Yes: WNL Cardiovascular: Yes: WNL Respiratory: Yes: WNL Gastrointestinal: Yes: WNL Extremities: Yes: WNL Edema: No Neurological: Yes: Alert, Oriented Labs: CBC, BMP 04/05/18 08:00 04/05/18 08:00 Assessment/Plan 72 year old female history of mild leukopenia presents with 9days history of malaise dry cough, and 3 day h/o fever/chills. Her WBC counts around 4.0 with normal platelets and ANC around 1436-1232. CUrrently WBC is 0.8/Platelets 50,000 Most likely viral illness with marrowsuppression Will r/o primary hematologic disorder Will check flow/FISH/cytogenetics/B 12/folate/LDH/TSH/SPEP/NAVJOT Transfuse monodonor platelets if bleeding or < [id number] On empiric antibiotics for neutropenic fever per ID h/o fundoplication for GERD--by Dr. Leary Will request GI f/u
[2018-04-05] MEDS ORDERED: AZTREONAM 2 GM in DEXTROSE 5%-WATER 100 ML IVPB SCH (18:00)
[2018-04-05] MEDS: MEROPENEM 1 GM in DEXTROSE 5%-WATER 100 ML IVPB SCH (19:03)
[2018-04-05] MEDS: DOXYCYCLINE INJECTION 100 MG in DEXTROSE 5%-WATER - 100 ML IVPB SCH ×2 (19:04→21:40)
--- NOTE | 2018-04-05 20:18 | PN ---
Progress Note (short form) - Note Progress Note: Patient seen and examined Seen previously by Dr. Jessica Merino malaise, hacking non productive cough x 10 + days/ Developed pancytopenia. Followed x years in office. Neutropenia with unclear etiology. At times, low folate, low B-12, and macrocytosis. Never responded to folate, B-12 therapy. Flow cytometry previously negative for MDS. Seen 02/11 in office. WBC-4000 ANC-1900 Hct-41% Platelet- 263K. Has never had thrombocytopenia. Has never had ANC below 1900 over past several years dating back to before 2014. Additional history has included persistent stable right axillary adenopathy, BOSWELL, GERD, Diverticulosis, osteoporosis, tension headaches. Prior notes reviewed Antibgiotics per ID. Flow and repeat hematology work up as noted in Dr. Lopez's note.
[2018-04-05] MEDS ORDERED: ACETAMINOPHEN 1000 MG/100 ML VIAL (NON FORMULARY) IVPB PRN (20:22)
[2018-04-06] MEDS: MEROPENEM 1 GM in DEXTROSE 5%-WATER 100 ML IVPB SCH ×3 (01:36→18:47)
[2018-04-06] MEDS: guaiFENesin/D-METHORPHAN HB 10 ML UNIT-DOSE CUPS PO PRN ×3 (01:57→16:33)
--- NOTE | 2018-04-06 08:06 | PN ---
Progress Note, Physician Chief Complaint: ID Fever and prominent couph Denies SOB Meropenem and Doxycycline day 1 Rx - Current Medication List Current Medications: Active Medications Acetaminophen (Ofirmev Injection -) 1,000 mg IVPB Q6H PRN PRN Reason: FEVER Guaifenesin (Robitussin Dm -) 10 ml PO Q6H PRN PRN Reason: COUGH Last Admin: 04/06/18 01:57 Dose: 10 ml Dextrose/Sodium Chloride (Dextrose 5%-Normal Saline+20 Meq Kcl -) 20 meq in 1, 000 mls @ 75 mls/hr IV ASDIR [facility] Last Admin: 04/05/18 15:00 Dose: 75 mls/hr Meropenem 1 gm/ Dextrose 100 mls @ 200 mls/hr IVPB Q8H-IV [facility] Last Admin: 04/06/18 01:36 Dose: 200 mls/hr Doxycycline Hyclate 100 mg/ (Dextrose) 100 mls @ 100 mls/hr IVPB BID@1000,1800 [facility] Last Admin: 04/05/18 21:40 Dose: 100 mls/hr Lactobacillus Acidophilus (Bacid -) 1 tab PO DAILY [facility] Last Admin: 04/05/18 15:36 Dose: 1 tab Ondansetron HCl (Zofran Injection) 4 mg IVPUSH Q6H PRN PRN Reason: NAUSEA AND/OR VOMITING Pantoprazole Sodium (Protonix Iv) 40 mg IVPB DAILY [facility] Last Admin: 04/05/18 15:33 Dose: 40 mg - Objective Vital Signs: Vital Signs Temperature 99.5 F 04/06/18 05:39 Pulse Rate 80 04/06/18 05:39 Respiratory Rate 18 04/06/18 05:39 Blood Pressure 117/36 04/06/18 05:39 O2 Sat by Pulse Oximetry (%) 94 L 04/06/18 05:39 Constitutional: Yes: Well Nourished, No Distress HENT: No: Thrush Neck: Yes: Lymphadenopathy Cardiovascular: Yes: S1, S2 Respiratory: Yes: WNL, Regular, CTA Bilaterally, Rales (Basilar rales) Gastrointestinal: Yes: WNL, Normal Bowel Sounds, Soft. No: Tenderness, Tenderness, Epigastrium Edema: No Labs: CBC, BMP 04/05/18 08:00 04/05/18 08:00 INR, PTT INR 1.30 (0.82-1.09) H 04/05/18 08:00 Problem List - Problems (1) FUO (fever of unknown origin) Code(s): R50.9 - FEVER, UNSPECIFIED (2) Neutropenia Code(s): D70.9 - NEUTROPENIA, UNSPECIFIED (3) Thrombocytopenia Code(s): D69.6 - THROMBOCYTOPENIA, UNSPECIFIED Assessment/Plan Microbiology 04/05/18 14:40 Nasopharyngeal Swab Respiratory Syncytial Virus Ag - Final 04/05/18 14:40 Nasopharyngeal Swab Influenza Types A,B Antigen - Final 04/05/18 14:40 Nasopharyngeal Swab - Final 04/05/18 14:14 Throat Group A Strep Rapid Antigen - Final NEGATIVE FOR THE ANTIGEN OF BETA HEMOLYTIC STREP GROUP A 04/04/18 15:06 Blood - Peripheral Venous Blood Culture - Preliminary NO GROWTH OBTAINED AFTER 24 HOURS, INCUBATION TO CONTINUE FOR 4 DAYS. 04/04/18 15:06 Blood - Peripheral Venous Blood Culture - Preliminary NO GROWTH OBTAINED AFTER 24 HOURS, INCUBATION TO CONTINUE FOR 4 DAYS. Laboratory Tests 04/05/18 04/05/18 04/05/18 08:00 08:00 14:42 WBC 0.8 L* Hgb 10.9 Hct 32.1 L Plt Count 50 L BUN 9 Creatinine 0.7 Creat Clearance w eGFR > 60 Babesia microti IgG Ab Pending Babesia microti IgM Ab Pending E. chaffeensis IgG Ab Pending E. chaffeensis IgM Ab Pending Assessment Neutropenic fever ? source Pancytopenia superimposed on chronic neutropenia Prominent couph ? fluid overload component vs PNA Plan Same antibiotics Blood smear pending Serology sent Chest xray ? Stop IVF Alicia SILVA
[2018-04-06] MEDS ORDERED: ALBUTEROL SO4 2.5/IPRATROPIUM 0.5 INH SOL 3 ML VIAL.NEB. NEB ONE (08:45)
[2018-04-06 09:02] LABS: ACTIVATED PTT 31.4 SECONDS (25.2-36.5)
[2018-04-06 09:06] LABS: INR 1.43 (0.82-1.09); PROTHROMBIN TIME (PATIENT) 15.9 SEC (10.2-13.0)
[2018-04-06] MEDS: LACTOBACILLUS ACIDOPHILUS 1 TABLET PO SCH (09:28)
[2018-04-06] MEDS: PANTOPRAZOLE SODIUM 40 MG VIAL IVPB SCH (09:29)
[2018-04-06] MEDS: DOXYCYCLINE INJECTION 100 MG in DEXTROSE 5%-WATER - 100 ML IVPB SCH ×2 (09:41→18:47)
[2018-04-06 09:58] LABS: HEMOGLOBIN 9.3 GM/dl (10.7-15.3); MCH 32.8 pg (25.7-33.7); MCHC 34.6 g/dl (32.0-36.0); MEAN PLT VOLUME 8.2 fl (7.5-11.1); PLATELET COUNT 53 K/MM3 (134-434); RBC 2.84 M/mm3 (3.60-5.2)
--- NOTE | 2018-04-06 10:24 | PN ---
Progress Note, [employer] - Note Progress Note: Selected Entries 04/06/18 04/06/18 04/06/18 05:39 08:17 09:58 Breakfast 50% Temperature 99.5 F 99.8 F H Laboratory Tests 04/04/18 04/05/18 04/06/18 12:47 08:00 07:45 WBC 1.0 L* 0.8 L* Pending Diet order clear liquid. Pt tolerated mario cracker and applesauce yesterday, during sw evaluation. - Dysphagia Impressions/Plan Dysphagia Impressions: Ongoing Evaluation *Silent aspiration: cannot be R/O at bedside Dysphagia Treatment Plan: OOB for meals, OOB for 1 h. after meals, Other (No PO intake within 2-3 hours of bedtime. Several small meals throughout the day, upright.) Recommendations: Other (f/u GI.Consider Acevedo to quantify reflux?) - Recommendations Diet Consistency: Regular (as tolerated and desired.) Medication Administration: Whole with water Liquids: Thin Liquids
[2018-04-06 10:34] LABS: WHITE BLOOD COUNT 0.9 K/mm3 (4.0-10.8)
[2018-04-06 10:38] LABS: ALBUMIN 1.8 g/dl (3.5-5.0); ALK PHOS 114 U/L (32-92); ANION GAP 7 (8-16); BILIRUBIN,TOTAL 1.3 mg/dl (0.2-1.0); BLOOD UREA NITROGEN 7 mg/dl (7-18); CHLORIDE 94 mmol/L (98-107); CO2 23 mmol/L (22-28); CREATININE 0.7 mg/dl (0.6-1.3); GLUCOSE,RANDOM 124 mg/dl (74-106); POTASSIUM 3.5 mmol/L (3.5-5.1); SGOT/AST 50 U/L (10-42); SGPT/ALT 28 U/L (10-40); TOT PROT 4.4 g/dl (6.4-8.3)
[2018-04-06 10:40] LABS: URIC ACID 2.6 mg/dl (2.6-7.2)
[2018-04-06 10:52] LABS: CALCIUM 6.9 mg/dl (8.4-10.2); SODIUM 124 mmol/L (136-145)
--- NOTE | 2018-04-06 11:00 | PN ---
Physical Exam: SUBJECTIVE: Patient seen and examined, reports ongoing cough, denies any shortness of breath. low grade temp noted 100.0 OBJECTIVE: patient is a 72 yrs old female, with a past medical history of chronic Thrombocytopenia and Hital hernia, past surgical history of failed fundoplication 3 yrs ago. patient was admitted from the emergency department for neutropenic fever and pancytopenia. Vital Signs Period Temp Pulse Resp BP Sys/Ackerman Pulse Ox Last 24 Hr 98.2 F-100.0 F 80-85 18-19 103-119/36-46 93-97 GENERAL: The patient is awake, alert, and fully oriented, in no acute distress. HEAD: Normal with no signs of trauma. EYES: PERRL, extraocular movements intact, sclera anicteric, conjunctiva clear. No ptosis. ENT: Ears normal, nares patent, oropharynx clear without exudates, moist mucous membranes. NECK: Trachea midline, full range of motion, supple. LUNGS: Breath sounds equal, clear to auscultation bilaterally crackles to bilateral base, no wheezes, no accessory muscle use. HEART: Regular rate and rhythm, S1, S2 without murmur, rub or gallop. ABDOMEN: Soft, nontender, nondistended, normoactive bowel sounds, no guarding, no rebound, no hepatosplenomegaly, no masses. EXTREMITIES: 2+ pulses, warm, well-perfused, no edema. NEUROLOGICAL: Cranial nerves II through XII grossly intact. Normal speech, gait not observed. PSYCH: Normal mood, normal affect. SKIN: Warm, dry, normal turgor, no rashes or lesions noted Laboratory Results - last 24 hr 04/04/18 04/04/18 04/05/18 12:47 16:03 14:42 WBC RBC Hgb Hct MCV MCH MCHC RDW Plt Count MPV PT with INR INR PTT (Actin FS) Sodium Potassium Chloride Carbon Dioxide Anion Gap BUN Creatinine Creat Clearance w eGFR Random Glucose Serum Osmolality Cancelled Uric Acid Calcium Total Bilirubin AST ALT Alkaline Phosphatase LD Total Total Protein Albumin Urine Osmolality Cancelled Blood Type O POSITIVE Antibody Screen Negative 04/06/18 04/06/18 04/06/18 07:45 07:45 07:45 WBC 0.9 L* RBC 2.84 L Hgb 9.3 L Hct 27.0 L D MCV 95.0 MCH 32.8 MCHC 34.6 RDW 13.0 Plt Count 53 L MPV 8.2 PT with INR 15.9 H INR 1.43 H PTT (Actin FS) 31.4 Sodium Potassium Chloride Carbon Dioxide Anion Gap BUN Creatinine Creat Clearance w eGFR Random Glucose Serum Osmolality Uric Acid 2.6 Calcium Total Bilirubin AST ALT Alkaline Phosphatase LD Total 484 H Total Protein Albumin Urine Osmolality Blood Type Antibody Screen 04/06/18 07:45 WBC RBC Hgb Hct MCV MCH MCHC RDW Plt Count MPV PT with INR INR PTT (Actin FS) Sodium 124 L* Potassium 3.5 Chloride 94 L Carbon Dioxide 23 Anion Gap 7 L BUN 7 Creatinine 0.7 Creat Clearance w eGFR > 60 Random Glucose 124 H Serum Osmolality Uric Acid Calcium 6.9 L* Total Bilirubin 1.3 H AST 50 H ALT 28 Alkaline Phosphatase 114 H LD Total Total Protein 4.4 L Albumin 1.8 L Urine Osmolality Blood Type Antibody Screen Active Medications Generic Name Dose Route Start Last Admin Trade Name Freq PRN Reason Stop Dose Admin Acetaminophen 1,000 mg 04/05/18 20:22 Ofirmev Injection - IVPB Q6H PRN FEVER Guaifenesin 10 ml 04/04/18 14:56 04/06/18 01:57 Robitussin Dm - PO 10 ml Q6H PRN Administration COUGH Dextrose/Sodium Chloride 20 meq in 1,000 mls @ 75 mls/hr 04/05/18 14:45 04/05 15:00 Dextrose 5%-Normal Saline+20 Meq Kcl - IV 75 mls/hr ASDIR [facility] Administration Meropenem 1 gm/ Dextrose 100 mls @ 200 mls/hr 04/05/18 18:00 04/06/18 09:28 IVPB 200 mls/hr Q8H-IV [facility] Administration Doxycycline Hyclate 100 mg/ 100 mls @ 100 mls/hr 04/05/18 18:00 04/06/18 09: 41 Dextrose IVPB 100 mls/hr BID@1000,1800 [facility] Administration Lactobacillus Acidophilus 1 tab 04/05/18 14:45 04/06/18 09:28 Bacid - PO 1 tab DAILY [facility] Administration Ondansetron HCl 4 mg 04/04/18 22:24 Zofran Injection IVPUSH Q6H PRN NAUSEA AND/OR VOMITING Pantoprazole Sodium 40 mg 04/05/18 15:30 04/06/18 09:29 Protonix Iv IVPB 40 mg DAILY [facility] Administration Microbiology 04/05/18 11:50 Stool Salmonella/Shigella Culture - Preliminary Non Lactose Fermenting Gnb 04/05/18 11:50 Stool Yersinia Culture - Preliminary NO ENTERIC PATHOGENS, 24 HOURS, ON PRIMARY PLATES 04/05/18 11:50 Stool Vibrio Culture - Final NO GROWTH OF VIBRIO SPECIES OBTAINED 04/05/18 11:50 Stool Escherichia coli 0157 Culture - Final NO GROWTH OF E COLI 0157 OBTAINED 04/04/18 18:20 Urine - Urine Clean Catch Urine Culture - Final NO GROWTH OBTAINED 04/05/18 14:40 Nasopharyngeal Swab Respiratory Syncytial Virus Ag - Final 04/05/18 14:40 Nasopharyngeal Swab Influenza Types A,B Antigen - Final 04/05/18 14:40 Nasopharyngeal Swab - Final 04/04/18 15:06 Blood - Peripheral Venous Blood Culture - Preliminary NO GROWTH OBTAINED AFTER 24 HOURS, INCUBATION TO CONTINUE FOR 4 DAYS. 04/04/18 15:06 Blood - Peripheral Venous Blood Culture - Preliminary NO GROWTH OBTAINED AFTER 24 HOURS, INCUBATION TO CONTINUE FOR 4 DAYS. 04/05/18 14:14 Throat Group A Strep Rapid Antigen - Final NEGATIVE FOR THE ANTIGEN OF BETA HEMOLYTIC STREP GROUP A IMAGING chest/abd/pelvis ct: minimal atelactaic changes of the right lower lobe, mild pleural thickening in the left lung, moderate sized hiatus hernia, mild spleenomegly chest xray 04/06: athelactic changers to bilateral bases ASSESSMENT/PLAN: 1) heme/onc neutropenic fever pancytopenia - likely viral vs tick borne, pending blood, throat, and urine culture negative to date, pending final stood cultures, continue empiric coverage with doxy and aztrenoman, ID consulted and following - lyme, ehricleia, and babesia pending - platelets trending upward - oncology Dr Stearns consulted and following 2) pulm cough -repeat cxr reviewed, crackles noted upon exam, will d/c ivf - continue protonix - close monitoring of spo2 3) gI diarherra - resolved, f/u stool cultures, prelim stool culture non lactose fermenting gnb , awaiting final - start probiotic f/e/n - hyponatremia may be secondary to fluid overload will d/c ivf repeat bmp in am - corrected calcium 8.6 - regular diet ppx - no ac secondary to thrombocytopenia - mechanical ac only - physical therapy - protonix dispo: pt requires inpatient admission Visit type - Emergency Visit Emergency Visit: Yes ED Registration Date: 04/04/18 Care time: The patient presented to the Emergency Department on the above date and was hospitalized for further evaluation of their emergent condition. - New Patient This patient is new to me today: No - Critical Care Critical Care patient: No - Discharge Referral Referred to [facility] Med P.C.: No
[2018-04-06] MEDS ORDERED: POTASSIUM CHLORIDE TABS 20 MEQ TABLET.ER (FP) PO ONE (11:30)
[2018-04-06] MEDS ORDERED: guaiFENesin 200 MG/10 ML 10 ML UNIT-DOSE CUPS PO PRN (12:32)
[2018-04-06] MEDS ORDERED: PT OWN MED DRAWER 7, Y5N ONE ×2 (16:21→23:49)
[2018-04-06] MEDS: ALBUTEROL SO4 2.5/IPRATROPIUM 0.5 INH SOL 3 ML VIAL.NEB. NEB PRN (16:33)
[2018-04-06] MEDS: ACETAMINOPHEN 325 MG TABLET (FP) PO PRN (18:47)
[2018-04-07] MEDS: MEROPENEM 1 GM in DEXTROSE 5%-WATER 100 ML IVPB SCH ×3 (01:43→18:37)
[2018-04-07] MEDS: guaiFENesin/D-METHORPHAN HB 10 ML UNIT-DOSE CUPS PO PRN ×2 (03:15→21:34)
[2018-04-07] MEDS: ACETAMINOPHEN 325 MG TABLET (FP) PO PRN ×2 (07:59→21:34)
[2018-04-07 08:46] LABS: EOS % 1.3 % (0-4.5); HEMATOCRIT 27.3 % (32.4-45.2); HEMOGLOBIN 9.4 GM/dl (10.7-15.3); LYMPH % 54.3 % (8-40); MCH 32.7 pg (25.7-33.7); MCHC 34.3 g/dl (32.0-36.0); MEAN CELL VOLUME 95.2 fl (80-96); MEAN PLT VOLUME 8.4 fl (7.5-11.1); MONO % 30.8 % (3.8-10.2); PLATELET COUNT 62 K/MM3 (134-434); RBC 2.87 M/mm3 (3.60-5.2); RDW 13.4 % (11.6-15.6); WHITE BLOOD COUNT 0.8 K/mm3 (4.0-10.8)
[2018-04-07 09:10] LABS: BASO % 0.6 % (0-2.0)
[2018-04-07] MEDS: DOXYCYCLINE INJECTION 100 MG in DEXTROSE 5%-WATER - 100 ML IVPB SCH ×2 (09:44→18:37)
[2018-04-07] MEDS: PANTOPRAZOLE SODIUM 40 MG VIAL IVPB SCH (09:44)
[2018-04-07] MEDS: LACTOBACILLUS ACIDOPHILUS 1 TABLET PO SCH (09:44)
[2018-04-07 10:01] LABS: ALBUMIN 1.9 g/dl (3.5-5.0); ALK PHOS 113 U/L (32-92); ANION GAP 2 (8-16); BILIRUBIN,TOTAL 1.4 mg/dl (0.2-1.0); BLOOD UREA NITROGEN 9 mg/dl (7-18); CALCIUM 7.2 mg/dl (8.4-10.2); CHLORIDE 101 mmol/L (98-107); CO2 25 mmol/L (22-28); CREATININE 0.7 mg/dl (0.6-1.3); GLUCOSE,RANDOM 111 mg/dl (74-106); MAGNESIUM 2.1 mg/dL (1.8-2.4); POTASSIUM 3.9 mmol/L (3.5-5.1); SGOT/AST 51 U/L (10-42); SGPT/ALT 33 U/L (10-40); SODIUM 128 mmol/L (136-145); TOT PROT 4.5 g/dl (6.4-8.3)
[2018-04-07] MEDS ORDERED: SODIUM PHOSPHATE - 15 MM in SODIUM CHLORIDE 250 ML IVPB ONE (11:30)
--- NOTE | 2018-04-07 11:54 | PN ---
Progress Note, Physician Chief Complaint: ID Meropenem & Doxycycline day 2 Rx She looks better today and her temp is down for now - Current Medication List Current Medications: Active Medications Acetaminophen (Ofirmev Injection -) 1,000 mg IVPB Q6H PRN PRN Reason: FEVER Acetaminophen (Tylenol -) 650 mg PO Q6H PRN PRN Reason: PAIN 1-3 Last Admin: 04/07/18 07:59 Dose: 650 mg Albuterol/Ipratropium (Duoneb -) 1 amp NEB Q6H PRN PRN Reason: SHORTNESS OF BREATH Last Admin: 04/06/18 16:33 Dose: 1 amp Guaifenesin (Robitussin Dm -) 10 ml PO Q6H PRN PRN Reason: COUGH Last Admin: 04/07/18 03:15 Dose: 10 ml Meropenem 1 gm/ Dextrose 100 mls @ 200 mls/hr IVPB Q8H-IV [facility] Last Admin: 04/07/18 09:44 Dose: 200 mls/hr Doxycycline Hyclate 100 mg/ (Dextrose) 100 mls @ 100 mls/hr IVPB BID@1000,1800 [facility] Last Admin: 04/07/18 09:44 Dose: 100 mls/hr Sodium Phosphate 15 mm/ Sodium (Chloride) 255 mls @ 62.5 mls/hr IVPB ONCE ONE Stop: 04/07/18 15:34 Lactobacillus Acidophilus (Bacid -) 1 tab PO DAILY [facility] Last Admin: 04/07/18 09:44 Dose: 1 tab Ondansetron HCl (Zofran Injection) 4 mg IVPUSH Q6H PRN PRN Reason: NAUSEA AND/OR VOMITING Pantoprazole Sodium (Protonix Iv) 40 mg IVPB DAILY [facility] Last Admin: 04/07/18 09:44 Dose: 40 mg - Objective Vital Signs: Vital Signs Temperature 97.7 F 04/07/18 09:45 Pulse Rate 54 L 04/07/18 09:45 Respiratory Rate 16 04/07/18 09:45 Blood Pressure 92/46 04/07/18 09:45 O2 Sat by Pulse Oximetry (%) 96 04/07/18 07:42 Constitutional: Yes: No Distress HENT: Yes: WNL, Atraumatic Neck: Yes: WNL, Supple Cardiovascular: Yes: S1, S2 Respiratory: Yes: WNL, Regular, CTA Bilaterally. No: Rales, Rhonchi Gastrointestinal: Yes: WNL, Normal Bowel Sounds, Soft. No: Tenderness, Tenderness, Epigastrium Edema: No Labs: CBC, BMP 04/07/18 08:00 04/07/18 08:00 INR, PTT INR 1.43 (0.82-1.09) H 04/06/18 07:45 Problem List - Problems (1) FUO (fever of unknown origin) Code(s): R50.9 - FEVER, UNSPECIFIED (2) Neutropenia Code(s): D70.9 - NEUTROPENIA, UNSPECIFIED (3) Thrombocytopenia Code(s): D69.6 - THROMBOCYTOPENIA, UNSPECIFIED Assessment/Plan Microbiology 04/05/18 11:50 Stool Escherichia coli 0157 Culture - Final NO GROWTH OF VIBRIO SPECIES OBTAINED NO GROWTH OF E COLI 0157 OBTAINED 04/05/18 11:50 Stool Salmonella/Shigella Culture - Preliminary 04/05/18 11:50 Stool Yersinia Culture - Preliminary NO ENTERIC PATHOGENS, 24 HOURS, ON PRIMARY PLATES Laboratory Tests 04/07/18 08:00 WBC 0.8 L* Hgb 9.4 L Hct 27.3 L Plt Count 62 L Neutrophils % 13.0 L Assessment Pancytopenia fever resolved still neutropenic ? Viral illnss Still no smear for Babesia ??? PErhaps better Plan Continue current therapy serology Alicia SILVA
[2018-04-07 14:35] LABS: IGA IMMUNOGLOBULIN 372 mg/dL (64-422); IGM IMMUNOGLOBULIN 116 mg/dL (26-217)
--- NOTE | 2018-04-07 14:41 | PN ---
Physical Exam: SUBJECTIVE: Patient seen and examined, sitting in bediside recliner, reports feeling much improved, reports cough, tolerating diet. OBJECTIVE:patient is a 72 yrs old female, with a past medical history of chronic Thrombocytopenia and Hital hernia, past surgical history of failed fundoplication 3 yrs ago. patient was admitted from the emergency department for neutropenic fever and pancytopenia. Vital Signs Period Temp Pulse Resp BP Sys/Ackerman Pulse Ox Last 24 Hr 97.3 F-99.1 F 54-89 16-18 92-111/42-47 94-97 GENERAL: The patient is awake, alert, and fully oriented, in no acute distress. HEAD: Normal with no signs of trauma. EYES: PERRL, extraocular movements intact, sclera anicteric, conjunctiva clear. No ptosis. ENT: Ears normal, nares patent, oropharynx clear without exudates, moist mucous membranes. NECK: Trachea midline, full range of motion, supple. LUNGS: Breath sounds equal, clear to auscultation bilaterally to apexes, crackle to bases, RR 20, no wheezes,, no accessory muscle use. HEART: Regular rate and rhythm, S1, S2 without murmur, rub or gallop. ABDOMEN: Soft, nontender, nondistended, normoactive bowel sounds, no guarding, no rebound, no hepatosplenomegaly, no masses. EXTREMITIES: 2+ pulses, warm, well-perfused, no edema NEUROLOGICAL: Cranial nerves II through XII grossly intact. Normal speech, gait not observed. PSYCH: Normal mood, normal affect. SKIN: Warm, dry, normal turgor, no rashes or lesions noted Laboratory Results - last 24 hr 04/04/18 04/06/18 04/06/18 16:03 07:45 07:45 WBC RBC Hgb Hct MCV MCH MCHC RDW Plt Count MPV Absolute Neuts (auto) Neutrophils % Lymphocytes % Monocytes % Eosinophils % Basophils % Sodium Potassium Chloride Carbon Dioxide Anion Gap BUN Creatinine Creat Clearance w eGFR Random Glucose Calcium Phosphorus Magnesium Ferritin 2276 H Total Bilirubin AST ALT Alkaline Phosphatase Total Protein Albumin Vitamin B12 1064 H Free T4 1.15 Urine Osmolality 160 IgG IgA IgM 04/06/18 04/07/18 04/07/18 07:45 08:00 08:00 WBC 0.8 L* RBC 2.87 L Hgb 9.4 L Hct 27.3 L MCV 95.2 MCH 32.7 MCHC 34.3 RDW 13.4 Plt Count 62 L MPV 8.4 Absolute Neuts (auto) 0.1 Neutrophils % 13.0 L Lymphocytes % 54.3 H Monocytes % 30.8 H Eosinophils % 1.3 Basophils % 0.6 Sodium 128 L Potassium 3.9 Chloride 101 Carbon Dioxide 25 Anion Gap 2 L BUN 9 Creatinine 0.7 Creat Clearance w eGFR > 60 Random Glucose 111 H Calcium 7.2 L Phosphorus 2.0 L Magnesium 2.1 Ferritin Total Bilirubin 1.4 H AST 51 H ALT 33 Alkaline Phosphatase 113 H Total Protein 4.5 L Albumin 1.9 L Vitamin B12 Free T4 Urine Osmolality IgG 687 L IgA 372 IgM 116 Active Medications Generic Name Dose Route Start Last Admin Trade Name Freq PRN Reason Stop Dose Admin Acetaminophen 1,000 mg 04/05/18 20:22 Ofirmev Injection - IVPB Q6H PRN FEVER Acetaminophen 650 mg 04/06/18 18:37 04/07/18 07:59 Tylenol - PO 650 mg Q6H PRN Administration PAIN 1-3 Albuterol/Ipratropium 1 amp 04/06/18 11:11 04/06/18 16:33 Duoneb - NEB 1 amp Q6H PRN Administration SHORTNESS OF BREATH Guaifenesin 10 ml 04/04/18 14:56 04/07/18 03:15 Robitussin Dm - PO 10 ml Q6H PRN Administration COUGH Meropenem 1 gm/ Dextrose 100 mls @ 200 mls/hr 04/05/18 18:00 04/07/18 09:44 IVPB 200 mls/hr Q8H-IV TRAE Administration Doxycycline Hyclate 100 mg/ 100 mls @ 100 mls/hr 04/05/18 18:00 04/07/18 09: 44 Dextrose IVPB 100 mls/hr BID@1000,1800 TRAE Administration Sodium Phosphate 15 mm/ Sodium 255 mls @ 62.5 mls/hr 04/07/18 11:30 04/07/18 12:20 Chloride IVPB 04/07/18 15:34 62.5 mls/hr ONCE ONE Administration Lactobacillus Acidophilus 1 tab 04/05/18 14:45 04/07/18 09:44 Bacid - PO 1 tab DAILY TRAE Administration Ondansetron HCl 4 mg 04/04/18 22:24 Zofran Injection IVPUSH Q6H PRN NAUSEA AND/OR VOMITING Pantoprazole Sodium 40 mg 04/05/18 15:30 04/07/18 09:44 Protonix Iv IVPB 40 mg DAILY TRAE Administration Microbiology 04/05/18 11:50 Stool Salmonella/Shigella Culture - Preliminary 04/05/18 11:50 Stool Campylobacter Culture - Final NO GROWTH OF CAMPYLOBACTER SPECIES OBTAINED 04/05/18 11:50 Stool Yersinia Culture - Final NO GROWTH OF YERSINIA SPECIES OBTAINED 04/05/18 11:50 Stool Vibrio Culture - Final NO GROWTH OF VIBRIO SPECIES OBTAINED 04/05/18 11:50 Stool Escherichia coli 0157 Culture - Final NO GROWTH OF E COLI 0157 OBTAINED 04/05/18 14:14 Throat Throat Culture - Final NO BETA HEMOLYTIC STREPTOCOCCI ISOLATED 04/05/18 14:14 Throat Group A Strep Rapid Antigen - Final NEGATIVE FOR THE ANTIGEN OF BETA HEMOLYTIC STREP GROUP A 04/04/18 15:06 Blood - Peripheral Venous Blood Culture - Preliminary NO GROWTH OBTAINED AFTER 48 HOURS, INCUBATION TO CONTINUE FOR 3 DAYS. 04/04/18 15:06 Blood - Peripheral Venous Blood Culture - Preliminary NO GROWTH OBTAINED AFTER 48 HOURS, INCUBATION TO CONTINUE FOR 3 DAYS. 04/04/18 18:20 Urine - Urine Clean Catch Urine Culture - Final NO GROWTH OBTAINED 04/05/18 14:40 Nasopharyngeal Swab Respiratory Syncytial Virus Ag - Final 04/05/18 14:40 Nasopharyngeal Swab Influenza Types A,B Antigen - Final 04/05/18 14:40 Nasopharyngeal Swab - Final IMAGING chest/abd/pelvis ct: minimal atelactaic changes of the right lower lobe, mild pleural thickening in the left lung, moderate sized hiatus hernia, mild spleenomegly chest xray 04/06: athelactic changers to bilateral bases ASSESSMENT/PLAN: 1) heme/onc neutropenic fever pancytopenia - likely viral vs tick borne, blood, throat, and urine culture negative to date , pending final stood cultures, continue empiric coverage with doxy and aztrenoman, ID consulted and following - lyme, ehricleia, and babesia pending - platelets trending upward - oncology Dr Stearns consulted and following 2) pulm cough - much improved - continue protonix - close monitoring of spo2 3) gI diarherra - pending cdiff, f/u stool cultures, awaiting final - continue probiotic f/e/n - hyponatremia trending upward, secondary to fluid overload repeat bmp in am - regular diet ppx - no ac secondary to thrombocytopenia - mechanical ac only - physical therapy - protonix dispo: pt requires inpatient admission Visit type - Emergency Visit Emergency Visit: Yes ED Registration Date: 04/04/18 Care time: The patient presented to the Emergency Department on the above date and was hospitalized for further evaluation of their emergent condition. - New Patient This patient is new to me today: No - Critical Care Critical Care patient: No - Discharge Referral Referred to [facility] Med P.C.: No
[2018-04-07] MEDS: ALBUTEROL SO4 2.5/IPRATROPIUM 0.5 INH SOL 3 ML VIAL.NEB. NEB PRN (16:19)
[2018-04-07] MEDS ORDERED: PT OWN MED DRAWER 7, Y5N ONE (16:41)
[2018-04-07] MEDS: AZITHROMYCIN IVPB 250 ML IVPB SCH (18:37)
[2018-04-07] MEDS: ATOVAQUONE 750 MG/5 ML (UNIT-DOSE PACKAGING) PO SCH (18:39)
[2018-04-08 00:13] LABS: BABESIA MICROTI ANTIBODY IGG <1:10 (Neg:<1:10); BABESIA MICROTI ANTIBODY IGM <1:10 (Neg:<1:10)
[2018-04-08] MEDS ORDERED: PT OWN MED DRAWER 7, Y5N ONE ×5 (02:05→18:26)
[2018-04-08] MEDS: MEROPENEM 1 GM in DEXTROSE 5%-WATER 100 ML IVPB SCH ×3 (02:18→18:32)
--- NOTE | 2018-04-08 06:35 | PN ---
Progress Note, Physician Chief Complaint: ID Smear positive for Babesiosis ! Temps down may have responded to Doxycycline ? coinfection with Anaplasma Couph prominent - Current Medication List Current Medications: Active Medications Acetaminophen (Ofirmev Injection -) 1,000 mg IVPB Q6H PRN PRN Reason: FEVER Acetaminophen (Tylenol -) 650 mg PO Q6H PRN PRN Reason: PAIN 1-3 Last Admin: 04/07/18 21:34 Dose: 650 mg Albuterol/Ipratropium (Duoneb -) 1 amp NEB Q6H PRN PRN Reason: SHORTNESS OF BREATH Last Admin: 04/07/18 16:19 Dose: 1 amp Atovaquone (Mepron -) 750 mg PO BIDWM [facility] Last Admin: 04/07/18 18:39 Dose: 750 mg Guaifenesin (Robitussin Dm -) 10 ml PO Q6H PRN PRN Reason: COUGH Last Admin: 04/07/18 21:34 Dose: 10 ml Meropenem 1 gm/ Dextrose 100 mls @ 200 mls/hr IVPB Q8H-IV [facility] Last Admin: 04/08/18 02:18 Dose: 200 mls/hr Doxycycline Hyclate 100 mg/ (Dextrose) 100 mls @ 100 mls/hr IVPB BID@1000,1800 [facility] Last Admin: 04/07/18 18:37 Dose: 100 mls/hr Azithromycin (Zithromax 500mg Ivpb (Pre-Docked)) 250 mls @ 250 mls/hr IVPB DAILY [facility] Last Admin: 04/07/18 18:37 Dose: 250 mls/hr Lactobacillus Acidophilus (Bacid -) 1 tab PO DAILY [facility] Last Admin: 04/07/18 09:44 Dose: 1 tab Pantoprazole Sodium (Protonix Iv) 40 mg IVPB DAILY [facility] Last Admin: 04/07/18 09:44 Dose: 40 mg - Objective Vital Signs: Vital Signs Temperature 99.4 F 04/08/18 06:00 Pulse Rate 76 04/08/18 06:00 Respiratory Rate 18 04/08/18 06:00 Blood Pressure 118/49 04/08/18 06:00 O2 Sat by Pulse Oximetry (%) 94 L 04/08/18 06:00 Constitutional: Yes: No Distress HENT: Yes: Atraumatic Neck: Yes: Supple Cardiovascular: Yes: S1, S2 Respiratory: Yes: WNL, Regular, CTA Bilaterally Gastrointestinal: Yes: Soft. No: Tenderness, Tenderness, Epigastrium Edema: No Labs: CBC, BMP 04/07/18 08:00 04/07/18 08:00 INR, PTT INR 1.43 (0.82-1.09) H 04/06/18 07:45 Problem List - Problems (1) FUO (fever of unknown origin) Code(s): R50.9 - FEVER, UNSPECIFIED (2) Neutropenia Code(s): D70.9 - NEUTROPENIA, UNSPECIFIED (3) Thrombocytopenia Code(s): D69.6 - THROMBOCYTOPENIA, UNSPECIFIED Assessment/Plan Microbiology 04/07/18 12:31 Blood - Peripheral Venous Blood Parasites Smear - Final Babesia Species Laboratory Tests 04/07/18 04/07/18 08:00 08:00 WBC 0.8 L* Hgb 9.4 L Hct 27.3 L Plt Count 62 L BUN 9 Creatinine 0.7 Assessment 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 Possible coinfection with Anaplasma. Plan Addition of Mepron and Azithromycin Continuation of Doxycyline for "other" tick illness May stop Meropenem in another day or 2 for neutropenic fever Repeat smear tomorrow Alicia SILVA
--- NOTE | 2018-04-08 07:44 | PN ---
Progress Note (short form) - Note Progress Note: Patient seen and examined Complains of tiredness and fatigue. Occasional mild headache No dysphagia, epistaxis nausea, emesis, dysuria, Cough has lessened, non productive Anorechtic with diminished appetite Last Vital Signs Temp Pulse Resp BP Pulse Ox 99.4 F 76 18 118/49 94 L 04/08/18 06:00 04/08/18 06:00 04/08/18 06:00 04/08/18 06:00 04/08/18 06:00 HEENT: SHIRLENE, EOM Intact Oropharynx: No thrush, No mucositis Neck: Supple Cor: RSR, No murmurs, No gallops Lungs: scatteed rhonchi Abd: Soft, Normal bowel sounds, No organomegaly Ext:No significant edema Skin: No rashes, Integument intact CBC, BMP 04/07/18 08:00 04/07/18 08:00 Abnormal Lab Results 04/06/18 04/07/18 04/07/18 07:45 08:00 08:00 WBC 0.8 L* RBC 2.87 L Hgb 9.4 L Hct 27.3 L Plt Count 62 L Neutrophils % 13.0 L Lymphocytes % 54.3 H Monocytes % 30.8 H Sodium 128 L Anion Gap 2 L Random Glucose 111 H Calcium 7.2 L Phosphorus 2.0 L Total Bilirubin 1.4 H AST 51 H Alkaline Phosphatase 113 H Total Protein 4.5 L Albumin 1.9 L IgG 687 L Current Medications Generic Name Dose Route Start Last Admin Trade Name Freq PRN Reason Stop Dose Admin Acetaminophen 1,000 mg 04/05/18 20:22 Ofirmev Injection - IVPB Q6H PRN FEVER Acetaminophen 650 mg 04/06/18 18:37 04/07/18 21:34 Tylenol - PO 650 mg Q6H PRN Administration PAIN 1-3 Albuterol/Ipratropium 1 amp 04/06/18 11:11 04/07/18 16:19 Duoneb - NEB 1 amp Q6H PRN Administration SHORTNESS OF BREATH Atovaquone 750 mg 04/07/18 17:45 04/07/18 18:39 Mepron - PO 750 mg BIDWM TRAE Administration Guaifenesin 10 ml 04/04/18 14:56 04/07/18 21:34 Robitussin Dm - PO 10 ml Q6H PRN Administration COUGH Meropenem 1 gm/ Dextrose 100 mls @ 200 mls/hr 04/05/18 18:00 04/08/18 02:18 IVPB 200 mls/hr Q8H-IV TRAE Administration Doxycycline Hyclate 100 mg/ 100 mls @ 100 mls/hr 04/05/18 18:00 04/07/18 18: 37 Dextrose IVPB 100 mls/hr BID@1000,1800 TRAE Administration Azithromycin 250 mls @ 250 mls/hr 04/07/18 17:45 04/07/18 18:37 Zithromax 500mg Ivpb (Pre-Docked) IVPB 250 mls/hr DAILY TRAE Administration Lactobacillus Acidophilus 1 tab 04/05/18 14:45 04/07/18 09:44 Bacid - PO 1 tab DAILY TRAE Administration Pantoprazole Sodium 40 mg 04/05/18 15:30 04/07/18 09:44 Protonix Iv IVPB 40 mg DAILY TRAE Administration Babesiosis Pancytopenia ? secondary infection Prior history of neutropenia Plan: Current management per I.D. Evaluate parasite load As current pancytopenia is presumed to be due to present underlying infection, will give neupogen Continue monitoring
[2018-04-08] MEDS: ATOVAQUONE 750 MG/5 ML (UNIT-DOSE PACKAGING) PO SCH ×2 (08:10→18:33)
[2018-04-08 08:33] LABS: HEMATOCRIT 26.3 % (32.4-45.2); HEMOGLOBIN 8.7 GM/dl (10.7-15.3); MCH 31.8 pg (25.7-33.7); MEAN CELL VOLUME 96.2 fl (80-96); MEAN PLT VOLUME 7.8 fl (7.5-11.1); PLATELET COUNT 78 K/MM3 (134-434); RBC 2.73 M/mm3 (3.60-5.2); RDW 13.3 % (11.6-15.6)
[2018-04-08 08:52] LABS: WHITE BLOOD COUNT 0.9 K/mm3 (4.0-10.8)
[2018-04-08 09:02] LABS: ALBUMIN 1.8 g/dl (3.5-5.0); ALK PHOS 118 U/L (32-92); ANION GAP 5 (8-16); BILIRUBIN,TOTAL 1.7 mg/dl (0.2-1.0); BLOOD UREA NITROGEN 7 mg/dl (7-18); CALCIUM 7.1 mg/dl (8.4-10.2); CHLORIDE 95 mmol/L (98-107); CO2 27 mmol/L (22-28); CREATININE 0.6 mg/dl (0.6-1.3); GLUCOSE,RANDOM 115 mg/dl (74-106); PHOSPHOROUS 2.7 mg/dl (2.5-4.6); POTASSIUM 3.5 mmol/L (3.5-5.1); SGOT/AST 49 U/L (10-42); SGPT/ALT 30 U/L (10-40); SODIUM 127 mmol/L (136-145); TOT PROT 4.5 g/dl (6.4-8.3)
--- NOTE | 2018-04-08 09:38 | PN ---
Physical Exam: SUBJECTIVE: Patient seen and examined, reports feeling well much improved denies any chest pain or shortness of breath, reports ongoing cough OBJECTIVE: patient is a 72 yrs old female, with a past medical history of chronic Thrombocytopenia and Hital hernia, past surgical history of failed fundoplication 3 yrs ago. patient was admitted from the emergency department for neutropenic fever and pancytopenia. Vital Signs Period Temp Pulse Resp BP Sys/Ackerman Pulse Ox Last 24 Hr 97.3 F-99.4 F 54-80 16-18 92-118/43-49 94-96 GENERAL: The patient is awake, alert, and fully oriented, in no acute distress. HEAD: Normal with no signs of trauma. EYES: PERRL, extraocular movements intact, sclera anicteric, conjunctiva clear. No ptosis. ENT: Ears normal, nares patent, oropharynx clear without exudates, moist mucous membranes. NECK: Trachea midline, full range of motion, supple. LUNGS: Breath sounds equal, clear to auscultation bilaterally to apexes, crackles to bases, no wheezes, no accessory muscle use. HEART: Regular rate and rhythm, S1, S2 without murmur, rub or gallop. ABDOMEN: Soft, nontender, nondistended, normoactive bowel sounds, no guarding, no rebound, no hepatosplenomegaly, no masses. EXTREMITIES: 2+ pulses, warm, well-perfused, no edema. NEUROLOGICAL: Cranial nerves II through XII grossly intact. Normal speech, gait not observed. PSYCH: Normal mood, normal affect. SKIN: Warm, dry, normal turgor, no rashes or lesions noted Laboratory Results - last 24 hr 04/05/18 04/06/18 04/06/18 14:42 07:45 07:45 WBC RBC Hgb Hct 27.4 L MCV MCH MCHC RDW Plt Count MPV Absolute Neuts (auto) Neutrophils % Lymphocytes % Sodium Potassium Chloride Carbon Dioxide Anion Gap BUN Creatinine Creat Clearance w eGFR Random Glucose Calcium Phosphorus Magnesium Total Bilirubin AST ALT Alkaline Phosphatase Total Protein Albumin Folate 1191 Folate Hemolysate 326.3 IgG 687 L IgA 372 IgM 116 Babesia microti IgG Ab <1:10 Babesia microti IgM Ab <1:10 04/07/18 04/08/18 04/08/18 08:00 07:30 07:30 WBC 0.9 L* RBC 2.73 L Hgb 8.7 L Hct 26.3 L MCV 96.2 H MCH 31.8 MCHC 33.0 RDW 13.3 Plt Count 78 L MPV 7.8 Absolute Neuts (auto) 0.1 Neutrophils % No Result Required. Lymphocytes % No Result Required. Sodium 128 L 127 L Potassium 3.9 3.5 Chloride 101 95 L Carbon Dioxide 25 27 Anion Gap 2 L 5 L BUN 9 7 Creatinine 0.7 0.6 Creat Clearance w eGFR > 60 > 60 Random Glucose 111 H 115 H Calcium 7.2 L 7.1 L Phosphorus 2.0 L 2.7 D Magnesium 2.1 2.0 Total Bilirubin 1.4 H 1.7 H AST 51 H 49 H ALT 33 30 Alkaline Phosphatase 113 H 118 H Total Protein 4.5 L 4.5 L Albumin 1.9 L 1.8 L Folate Folate Hemolysate IgG IgA IgM Babesia microti IgG Ab Babesia microti IgM Ab Active Medications Generic Name Dose Route Start Last Admin Trade Name Freq PRN Reason Stop Dose Admin Acetaminophen 1,000 mg 04/05/18 20:22 Ofirmev Injection - IVPB Q6H PRN FEVER Acetaminophen 650 mg 04/06/18 18:37 04/07/18 21:34 Tylenol - PO 650 mg Q6H PRN Administration PAIN 1-3 Albuterol/Ipratropium 1 amp 04/06/18 11:11 04/07/18 16:19 Duoneb - NEB 1 amp Q6H PRN Administration SHORTNESS OF BREATH Atovaquone 750 mg 04/07/18 17:45 04/08/18 08:10 Mepron - PO 750 mg BIDWM TRAE Administration Guaifenesin 10 ml 04/04/18 14:56 04/07/18 21:34 Robitussin Dm - PO 10 ml Q6H PRN Administration COUGH Meropenem 1 gm/ Dextrose 100 mls @ 200 mls/hr 04/05/18 18:00 04/08/18 02:18 IVPB 200 mls/hr Q8H-IV TRAE Administration Doxycycline Hyclate 100 mg/ 100 mls @ 100 mls/hr 04/05/18 18:00 04/07/18 18: 37 Dextrose IVPB 100 mls/hr BID@1000,1800 TRAE Administration Azithromycin 250 mls @ 250 mls/hr 04/07/18 17:45 04/07/18 18:37 Zithromax 500mg Ivpb (Pre-Docked) IVPB 250 mls/hr DAILY TRAE Administration Lactobacillus Acidophilus 1 tab 04/05/18 14:45 04/07/18 09:44 Bacid - PO 1 tab DAILY TRAE Administration Pantoprazole Sodium 40 mg 04/05/18 15:30 04/07/18 09:44 Protonix Iv IVPB 40 mg DAILY TRAE Administration Potassium Chloride 40 meq 04/08/18 09:27 K-Dur - PO 04/08/18 09:28 ONCE ONE Tbo-Filgrastim 480 mcg 04/08/18 10:00 Granix - SQ DAILY [facility] Microbiology 04/07/18 12:18 Stool Clostridium difficile Antigen (RADHA) - Final, negative 04/07/18 12:18 Stool Clostridium difficile Toxin Assay - Final, negative 04/04/18 15:06 Blood - Peripheral Venous Blood Culture - Preliminary NO GROWTH OBTAINED AFTER 72 HOURS, INCUBATION TO CONTINUE FOR 2 DAYS. 04/04/18 15:06 Blood - Peripheral Venous Blood Culture - Preliminary NO GROWTH OBTAINED AFTER 72 HOURS, INCUBATION TO CONTINUE FOR 2 DAYS. 04/07/18 12:31 Blood - Peripheral Venous Blood Parasites Smear - Final Babesia Species 04/05/18 11:50 Stool Salmonella/Shigella Culture - Preliminary 04/05/18 11:50 Stool Campylobacter Culture - Final NO GROWTH OF CAMPYLOBACTER SPECIES OBTAINED 04/05/18 11:50 Stool Yersinia Culture - Final NO GROWTH OF YERSINIA SPECIES OBTAINED 04/05/18 11:50 Stool Vibrio Culture - Final NO GROWTH OF VIBRIO SPECIES OBTAINED 04/05/18 11:50 Stool Escherichia coli 0157 Culture - Final NO GROWTH OF E COLI 0157 OBTAINED 04/05/18 14:14 Throat Throat Culture - Final NO BETA HEMOLYTIC STREPTOCOCCI ISOLATED 04/05/18 14:14 Throat Group A Strep Rapid Antigen - Final NEGATIVE FOR THE ANTIGEN OF BETA HEMOLYTIC STREP GROUP A 04/04/18 18:20 Urine - Urine Clean Catch Urine Culture - Final NO GROWTH OBTAINED 04/05/18 14:40 Nasopharyngeal Swab Respiratory Syncytial Virus Ag - Final, negative 04/05/18 14:40 Nasopharyngeal Swab Influenza Types A,B Antigen - Final, negtaive 04/05/18 14:40 Nasopharyngeal Swab - Final IMAGING chest/abd/pelvis ct: minimal atelactaic changes of the right lower lobe, mild pleural thickening in the left lung, moderate sized hiatus hernia, mild spleenomegly chest xray 04/06: athelactic changers to bilateral bases ASSESSMENT/PLAN: 1) heme/onc neutropenic fever pancytopenia babesia - as per ID (Alicia) continue mepron and zithromax for babesia - continue doxycline for super imposed infections - platelets trending upward - neupogen today - oncology Dr Stearns and ID Dr Vargas consulted and following 2) pulm cough - much improved, repeat cxr today - close monitoring of spo2 3) gI diarherra - resolved cdiff negative, stool cultures ntd - continue probiotic f/e/n - hyponatremia trending upward, secondary to fluid overload and sepsis repeat bmp in am - regular diet ppx - no ac secondary to thrombocytopenia - mechanical ac only - physical therapy - protonix dispo: pt requires inpatient admission Visit type - Emergency Visit Emergency Visit: Yes ED Registration Date: 04/04/18 Care time: The patient presented to the Emergency Department on the above date and was hospitalized for further evaluation of their emergent condition. - New Patient This patient is new to me today: No - Critical Care Critical Care patient: No - Discharge Referral Referred to [facility] Med P.C.: No
--- NOTE | 2018-04-08 09:48 | PN ---
Progress Note, [employer] - Note Progress Note: Babesiosis Selected Entries 04/07/18 04/07/18 04/07/18 02:00 06:00 09:17 Breakfast 75% Lunch Temperature 97.8 F 99.1 F 04/07/18 04/07/18 04/07/18 09:45 13:12 14:20 Breakfast Lunch 75% Temperature 97.7 F 97.3 F L 04/07/18 04/07/18 04/08/18 17:41 22:00 06:00 Breakfast Lunch Temperature 98.6 F 98.0 F 99.4 F Upgraded to reg diet/thin liquids. Cough improving. Tolerating diet without difficulty. No further f/u indicated at this time. Thank you for your kind consultation.
[2018-04-08] MEDS ORDERED: TBO-FILGRASTIM 300 MCG/0.5 ML DISP.SYRINGE SQ SCH (10:00)
[2018-04-08] MEDS ORDERED: POTASSIUM CHLORIDE TABS 20 MEQ TABLET.ER (FP) PO ONE (10:00)
[2018-04-08] MEDS: LACTOBACILLUS ACIDOPHILUS 1 TABLET PO SCH (10:12)
[2018-04-08] MEDS: DOXYCYCLINE INJECTION 100 MG in DEXTROSE 5%-WATER - 100 ML IVPB SCH ×2 (10:14→18:33)
[2018-04-08] MEDS: AZITHROMYCIN IVPB 250 ML IVPB SCH (10:14)
[2018-04-08] MEDS: PANTOPRAZOLE SODIUM 40 MG VIAL IVPB SCH (10:14)
[2018-04-08] MEDS: TBO-FILGRASTIM 480 MCG/0.8 ML DISP.SYRIN SQ SCH (12:00)
[2018-04-08 15:08] LABS: PLATELET ESTIMATE DECREASED
[2018-04-08 15:28] VITALS: BMI 26.2
--- NOTE | 2018-04-08 15:30 | PATH ---
Surgical Pathology Report Patient Name: NORMA DUTTA [facility]. Rec. #: [id number] /Age/Gender: 1945 (Age: 72) / F Account: [id number] Location: [facility] MED-SURG Taken: 04/06/2018 Received: 04/07/2018 Reported: 04/08/2018 Physicians: Jessica Bates M.D. Specimen(s) Received PERIPHERAL BLOOD (2 GREEN TOP TUBES) Clinical History leukopenia Final Diagnosis COMPREHENSIVE FLOW PANEL performed and interpreted at [place], [place] ([id number]) shows the following: INTERPRETATION: Granulocytopenia with no discrete atypical immunophenotypic findings seen. See [facility] report ([id number]) for additional details. ACUTE MYELOID LEUKEMIA FISH PANEL performed and interpreted at [facility] ([id number]) shows the following: INTERPRETATION: No evidence of deletion 5q or monosomy 5 is present. No evidence of deletion 7q or monosomy 7 is present. No evidence of trisomy 8 (+8) is present. No evidence of a rearrangement of 11q23. No BCR/ABL1 t(9;22) translocation is detected. No PML/SHANNON t(15;17) translocation is detected. No ETO/AML1 t(8;21) translocation is detected. No CBFB (16q22) rearrangement is detected. COMMENTS: Correlation with pending cytogenetics ([id number]) is recommended. Eight multiplex probe stain procedures were performed. See [facility] report for additional details ([id number]) ADDITIONAL TESTS: Cytogenetics, pending. Electronically Signed Nubia Wilson M.D. Addendum Reported: 04/14/2018 Addendum Diagnosis BCR-ABL Gene Rearrangement (IS) Analysis performed and interpreted at [place], [place] ([id number]) shows the following: RESULTS: Negative BCR/ABL Major breakpoints (b2a2 and b3a2): Not Detected BCR/ABL Minor breakpoint (e1a2): Not Detected INTERPRETATION: No BCR-ABL translocation was detected in this sample. COMMENT: The BCR/ABL fusion gene, formed by rearrangement of the breakpoint cluster region (bcr) on chromosome 22 with the c-abl roger-oncogene on chromosome 9, is present in vast majority of CML patients, and 35% of Stanton chromosome-positive precursor B-ALL. The BCR/ABL rearrangement causes production of an abnormal tyrosine kinase molecule with increased activity. The major breakpoint cluster region (M-bcr), detected mainly in CML, has two junctional variants, b2a2 and b3a2. The M-bcr gives rise to the BCR/ABL1 chimeric protein p210, a deregulated tyrosine kinase. The minor breakpoint region (m-bcr), detected in a small minority of CML patients and in a majority of patients with Stanton chromosome-positive precursor B-ALL, codes for the BCR/ABL1 chimeric protein p190. The quantification of BCR-ABL major breakpoints (b3a2 and b2a2) was compliant with the updated international recommendations, and contains an IS-MMR Calibrator to the International Scale (IS). The International Randomized Study of Interferon (IRIS) trial and follow up studies have demonstrated that achieving MMR, or a 3-log reduction in BCR-ABL1 expression from the standardized baseline level, is a cole clinical outcome. See [facility]ge report ([id number]) for additional details. Nubia Wilson M.D. Addendum Reported: 04/20/2018 Addendum Diagnosis CYTOGENETIC KARYOTYPE ANALYSIS performed and interpreted at [facility] laboratory, [facility] ([id number]) shows the following: TEST RESULTS: Tissue Culture Failure DIAGNOSTIC INTERPRETATION: This unstimulated peripheral blood specimen did not produce any analyzable metaphase cells and, therefore, chromosome analysis is not possible. A bone marrow aspirate, when clinically appropriate, is recommended. See Emerge report for additional details ([id number]) Nubia Wilson M.D.
[2018-04-08 16:33] LABS: E. chaff IgG Negative (Neg:<1:64)
[2018-04-08 16:33] LABS: SERUM IRON SATURATION 15 % (15-55); TOTAL IRON BINDING CAPACITY 141 ug/dL (250-450); UIBC 120 ug/dL (118-369)
[2018-04-08] MEDS: ACETAMINOPHEN 325 MG TABLET (FP) PO PRN (22:52)
[2018-04-09 00:15] LABS: PARV B19 IGG 0.5 index (0.0-0.8); PARV B19 IGM 0.6 index (0.0-0.8)
[2018-04-09] MEDS: MEROPENEM 1 GM in DEXTROSE 5%-WATER 100 ML IVPB SCH ×3 (02:28→17:43)
[2018-04-09] MEDS ORDERED: PT OWN MED DRAWER 7, Y5N ONE ×3 (08:20→17:28)
--- NOTE | 2018-04-09 08:20 | PN ---
Progress Note (short form) - Note Progress Note: cough improved no fevers poor appetite Vital Signs Period Temp Pulse Resp BP Sys/Ackerman Pulse Ox Last 24 Hr 98.4 F-998.8 F 71-81 18-20 101-120/41-55 91-96 no thrush cor-rrr lungs bibasilar crackles abd soft,nt ext no edema CBC, BMP 04/08/18 07:30 04/08/18 07:30 labs today have not been drawn yet! Current Medications Acetaminophen (Ofirmev Injection -) 1,000 mg IVPB Q6H PRN PRN Reason: FEVER Acetaminophen (Tylenol -) 650 mg PO Q6H PRN PRN Reason: PAIN 1-3 Last Admin: 04/08/18 22:52 Dose: 650 mg Albuterol/Ipratropium (Duoneb -) 1 amp NEB Q6H PRN PRN Reason: SHORTNESS OF BREATH Last Admin: 04/07/18 16:19 Dose: 1 amp Atovaquone (Mepron -) 750 mg PO BIDWM TRAE Last Admin: 04/08/18 18:33 Dose: Not Given Guaifenesin (Robitussin Dm -) 10 ml PO Q6H PRN PRN Reason: COUGH Last Admin: 04/07/18 21:34 Dose: 10 ml Meropenem 1 gm/ Dextrose 100 mls @ 200 mls/hr IVPB Q8H-IV TRAE Last Admin: 04/09/18 02:28 Dose: 200 mls/hr Doxycycline Hyclate 100 mg/ (Dextrose) 100 mls @ 100 mls/hr IVPB BID@1000,1800 TRAE Last Admin: 04/08/18 18:33 Dose: 100 mls/hr Azithromycin (Zithromax 500mg Ivpb (Pre-Docked)) 250 mls @ 250 mls/hr IVPB DAILY TRAE Last Admin: 04/08/18 10:14 Dose: 250 mls/hr Lactobacillus Acidophilus (Bacid -) 1 tab PO DAILY TRAE Last Admin: 04/08/18 10:12 Dose: 1 tab Pantoprazole Sodium (Protonix -) 40 mg PO DAILY [facility] Tbo-Filgrastim (Granix -) 480 mcg SQ DAILY [facility] Last Admin: 04/08/18 12:00 Dose: 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
[2018-04-09] MEDS: ATOVAQUONE 750 MG/5 ML (UNIT-DOSE PACKAGING) PO SCH ×2 (08:32→17:44)
[2018-04-09 09:44] LABS: EOS % 0.9 % (0-4.5); HEMATOCRIT 27.4 % (32.4-45.2); HEMOGLOBIN 9.6 GM/dl (10.7-15.3); LYMPH % 34.2 % (8-40); MCH 33.5 pg (25.7-33.7); MEAN CELL VOLUME 95.9 fl (80-96); MEAN PLT VOLUME 7.7 fl (7.5-11.1); MONO % 12.3 % (3.8-10.2); NEUT % 51.6 % (42.8-82.8); PLATELET COUNT 93 K/MM3 (134-434); RBC 2.86 M/mm3 (3.60-5.2); RDW 13.4 % (11.6-15.6)
[2018-04-09 10:04] LABS: ALK PHOS 119 U/L (32-92); ANION GAP 9 (8-16); BILIRUBIN,TOTAL 1.7 mg/dl (0.2-1.0); BLOOD UREA NITROGEN 8 mg/dl (7-18); CALCIUM 7.7 mg/dl (8.4-10.2); CHLORIDE 100 mmol/L (98-107); CO2 24 mmol/L (22-28); CREATININE 0.6 mg/dl (0.6-1.3); GLUCOSE,RANDOM 147 mg/dl (74-106); MAGNESIUM 2.1 mg/dL (1.8-2.4); PHOSPHOROUS 2.2 mg/dl (2.5-4.6); POTASSIUM 3.5 mmol/L (3.5-5.1); SGOT/AST 64 U/L (10-42); SGPT/ALT 38 U/L (10-40); SODIUM 133 mmol/L (136-145)
[2018-04-09] MEDS: LACTOBACILLUS ACIDOPHILUS 1 TABLET PO SCH (10:17)
[2018-04-09] MEDS: PANTOPRAZOLE 40 MG TABLET (FP) PO SCH (10:17)
[2018-04-09] MEDS: TBO-FILGRASTIM 480 MCG/0.8 ML DISP.SYRIN SQ SCH (10:23)
[2018-04-09] MEDS: DOXYCYCLINE INJECTION 100 MG in DEXTROSE 5%-WATER - 100 ML IVPB SCH ×2 (10:32→17:47)
[2018-04-09] MEDS: AZITHROMYCIN IVPB 250 ML IVPB SCH (10:34)
--- NOTE | 2018-04-09 14:03 | PN ---
Physical Exam: SUBJECTIVE: Patient seen and examined, reports feeling much improved, less cough OBJECTIVE:patient is a 72 yrs old female, with a past medical history of chronic Thrombocytopenia and Hital hernia, past surgical history of failed fundoplication 3 yrs ago. patient was admitted from the emergency department for neutropenic fever and pancytopenia, secondary to babesia Vital Signs Period Temp Pulse Resp BP Sys/Ackerman Pulse Ox Last 24 Hr 97.6 F-998.8 F 71-81 18-20 100-120/40-52 95-95 GENERAL: The patient is awake, alert, and fully oriented, in no acute distress. HEAD: Normal with no signs of trauma. EYES: PERRL, extraocular movements intact, sclera anicteric, conjunctiva clear. No ptosis. ENT: Ears normal, nares patent, oropharynx clear without exudates, moist mucous membranes. NECK: Trachea midline, full range of motion, supple. LUNGS: Breath sounds equal, clear to auscultation bilaterally to apexes, crackles to bases, no wheezes, no accessory muscle use. HEART: Regular rate and rhythm, S1, S2 without murmur, rub or gallop. ABDOMEN: Soft, nontender, nondistended, normoactive bowel sounds, no guarding, no rebound, no hepatosplenomegaly, no masses. EXTREMITIES: 2+ pulses, warm, well-perfused, no edema. NEUROLOGICAL: Cranial nerves II through XII grossly intact. Normal speech, gait not observed. PSYCH: Normal mood, normal affect. SKIN: Warm, dry, normal turgor, no rashes or lesions noted Laboratory Results - last 24 hr 04/05/18 04/06/18 04/06/18 14:42 07:45 07:45 WBC RBC Hgb Hct MCV MCH MCHC RDW Plt Count MPV Absolute Neuts (auto) Neutrophils % Neutrophils % (Manual) Lymphocytes % Lymphocytes % (Manual) Monocytes % Monocytes % (Manual) Eosinophils % Basophils % Other Cell Type Platelet Estimate Retic Count Sodium Potassium Chloride Carbon Dioxide Anion Gap BUN Creatinine Creat Clearance w eGFR Random Glucose Calcium Phosphorus Magnesium Iron TIBC Iron Saturation Total Bilirubin AST ALT Alkaline Phosphatase Total Protein Total Protein (PEP) Albumin Albumin (PEP) Globulin Albumin/Globulin Ratio Beta Globulins GURJIT M-Fabricio CMV IgG Ab 1.50 H CMV IgM Ab 132.0 H Ehrlichia IgG Antibody Negative E. chaffeensis IgG Ab Negative E. chaffeensis IgM Ab Negative EBV IgG Ab 60.7 H EBV Early Antigen <9.0 EBV Nuclear Antigen <18.0 Parvovirus B19 IgG Ab Parvovirus B19 IgM Ab 04/06/18 04/06/18 04/06/18 07:45 07:45 07:45 WBC RBC Hgb Hct MCV MCH MCHC RDW Plt Count MPV Absolute Neuts (auto) Neutrophils % Neutrophils % (Manual) Lymphocytes % Lymphocytes % (Manual) Monocytes % Monocytes % (Manual) Eosinophils % Basophils % Other Cell Type Platelet Estimate Retic Count Sodium Potassium Chloride Carbon Dioxide Anion Gap BUN Creatinine Creat Clearance w eGFR Random Glucose Calcium Phosphorus Magnesium Iron 21 L TIBC 141 L Iron Saturation 15 Total Bilirubin AST ALT Alkaline Phosphatase Total Protein Total Protein (PEP) 4.3 L Albumin Albumin (PEP) 1.9 L Globulin 2.4 Albumin/Globulin Ratio 0.8 Beta Globulins 0.9 GURJIT M-Fabricio Not observed CMV IgG Ab CMV IgM Ab Ehrlichia IgG Antibody E. chaffeensis IgG Ab E. chaffeensis IgM Ab EBV IgG Ab EBV Early Antigen EBV Nuclear Antigen Parvovirus B19 IgG Ab 0.5 Parvovirus B19 IgM Ab 0.6 04/08/18 04/09/18 04/09/18 07:30 07:30 07:30 WBC 2.0 L RBC 2.86 L Hgb 9.6 L Hct 27.4 L MCV 95.9 MCH 33.5 MCHC 35.0 RDW 13.4 Plt Count 93 L MPV 7.7 Absolute Neuts (auto) 1.1 Neutrophils % 51.6 Neutrophils % (Manual) 16.0 L Lymphocytes % 34.2 Lymphocytes % (Manual) 50.0 H Monocytes % 12.3 H Monocytes % (Manual) 34 H* Eosinophils % 0.9 Basophils % 1.0 Other Cell Type Platelet Estimate Decreased Retic Count 1.95 H Sodium Potassium Chloride Carbon Dioxide Anion Gap BUN Creatinine Creat Clearance w eGFR Random Glucose Calcium Phosphorus Magnesium Iron TIBC Iron Saturation Total Bilirubin AST ALT Alkaline Phosphatase Total Protein Total Protein (PEP) Albumin Albumin (PEP) Globulin Albumin/Globulin Ratio Beta Globulins GURJIT M-Fabricio CMV IgG Ab CMV IgM Ab Ehrlichia IgG Antibody E. chaffeensis IgG Ab E. chaffeensis IgM Ab EBV IgG Ab EBV Early Antigen EBV Nuclear Antigen Parvovirus B19 IgG Ab Parvovirus B19 IgM Ab 04/09/18 07:30 WBC RBC Hgb Hct MCV MCH MCHC RDW Plt Count MPV Absolute Neuts (auto) Neutrophils % Neutrophils % (Manual) Lymphocytes % Lymphocytes % (Manual) Monocytes % Monocytes % (Manual) Eosinophils % Basophils % Other Cell Type Platelet Estimate Retic Count Sodium 133 L Potassium 3.5 Chloride 100 Carbon Dioxide 24 Anion Gap 9 BUN 8 Creatinine 0.6 Creat Clearance w eGFR > 60 Random Glucose 147 H D Calcium 7.7 L Phosphorus 2.2 L Magnesium 2.1 Iron TIBC Iron Saturation Total Bilirubin 1.7 H AST 64 H D ALT 38 D Alkaline Phosphatase 119 H Total Protein 5.0 L Total Protein (PEP) Albumin 2.0 L Albumin (PEP) Globulin Albumin/Globulin Ratio Beta Globulins GURJIT M-Fabricio CMV IgG Ab CMV IgM Ab Ehrlichia IgG Antibody E. chaffeensis IgG Ab E. chaffeensis IgM Ab EBV IgG Ab EBV Early Antigen EBV Nuclear Antigen Parvovirus B19 IgG Ab Parvovirus B19 IgM Ab Active Medications Generic Name Dose Route Start Last Admin Trade Name Freq PRN Reason Stop Dose Admin Acetaminophen 1,000 mg 04/05/18 20:22 Ofirmev Injection - IVPB Q6H PRN FEVER Acetaminophen 650 mg 04/06/18 18:37 04/08/18 22:52 Tylenol - PO 650 mg Q6H PRN Administration PAIN 1-3 Albuterol/Ipratropium 1 amp 04/06/18 11:11 04/07/18 16:19 Duoneb - NEB 1 amp Q6H PRN Administration SHORTNESS OF BREATH Atovaquone 750 mg 04/07/18 17:45 04/09/18 08:32 Mepron - PO 750 mg BIDWM TRAE Administration Guaifenesin 10 ml 04/04/18 14:56 04/07/18 21:34 Robitussin Dm - PO 10 ml Q6H PRN Administration COUGH Meropenem 1 gm/ Dextrose 100 mls @ 200 mls/hr 04/05/18 18:00 04/09/18 10:21 IVPB 200 mls/hr Q8H-IV TRAE Administration Doxycycline Hyclate 100 mg/ 100 mls @ 100 mls/hr 04/05/18 18:00 04/09/18 10: 32 Dextrose IVPB 100 mls/hr BID@1000,1800 TRAE Administration Azithromycin 250 mls @ 250 mls/hr 04/07/18 17:45 04/09/18 10:34 Zithromax 500mg Ivpb (Pre-Docked) IVPB 250 mls/hr DAILY TRAE Administration Lactobacillus Acidophilus 1 tab 04/05/18 14:45 04/09/18 10:17 Bacid - PO 1 tab DAILY TRAE Administration Pantoprazole Sodium 40 mg 04/09/18 10:00 04/09/18 10:17 Protonix - PO 40 mg DAILY TRAE Administration Microbiology 04/05/18 11:50 Stool Salmonella/Shigella Culture - Final 04/05/18 11:50 Stool Campylobacter Culture - Final NO GROWTH OF CAMPYLOBACTER SPECIES OBTAINED 04/05/18 11:50 Stool Yersinia Culture - Final NO GROWTH OF YERSINIA SPECIES OBTAINED 04/05/18 11:50 Stool Vibrio Culture - Final NO GROWTH OF VIBRIO SPECIES OBTAINED 04/05/18 11:50 Stool Escherichia coli 0157 Culture - Final NO GROWTH OF E COLI 0157 OBTAINED 04/04/18 15:06 Blood - Peripheral Venous Blood Culture - Preliminary NO GROWTH OBTAINED AFTER 96 HOURS, INCUBATION TO CONTINUE FOR 1 DAYS. 04/04/18 15:06 Blood - Peripheral Venous Blood Culture - Preliminary NO GROWTH OBTAINED AFTER 96 HOURS, INCUBATION TO CONTINUE FOR 1 DAYS. 04/07/18 12:31 Blood - Peripheral Venous Blood Parasites Smear - Preliminary Babesia Species 04/07/18 12:18 Stool Clostridium difficile Antigen (RADHA) - Final 04/07/18 12:18 Stool Clostridium difficile Toxin Assay - Final 04/05/18 14:14 Throat Throat Culture - Final NO BETA HEMOLYTIC STREPTOCOCCI ISOLATED 04/05/18 14:14 Throat Group A Strep Rapid Antigen - Final NEGATIVE FOR THE ANTIGEN OF BETA HEMOLYTIC STREP GROUP A 04/04/18 18:20 Urine - Urine Clean Catch Urine Culture - Final NO GROWTH OBTAINED 04/05/18 14:40 Nasopharyngeal Swab Respiratory Syncytial Virus Ag - Final 04/05/18 14:40 Nasopharyngeal Swab Influenza Types A,B Antigen - Final 04/05/18 14:40 Nasopharyngeal Swab - Final IMAGING chest/abd/pelvis ct: minimal atelactaic changes of the right lower lobe, mild pleural thickening in the left lung, moderate sized hiatus hernia, mild spleenomegly chest xray 04/06: athelactic changers to bilateral bases ASSESSMENT/PLAN: 1) heme/onc neutropenic fever pancytopenia babesia - as per ID (Alicia) continue mepron and zithromax for babesia, repeat blood smear today - continue doxycline and meropenm for super imposed infections - platelets trending upward - neupogen 04/08 and 04/09->wbc 2.0 - plts improving - oncology Dr Stearns and ID Dr Vargas consulted and following 2) pulm cough - chest xray 04/08, improvement of athelactaic changes - close monitoring of spo2 3) gI diarherra - resolved cdiff negative, stool cultures ntd - continue probiotic f/e/n - hyponatremia trending upward, secondary to fluid overload and sepsis repeat bmp in am - regular diet ppx - no ac secondary to thrombocytopenia - mechanical ac only - physical therapy - protonix dispo: pt requires inpatient admission Visit type - Emergency Visit Emergency Visit: Yes ED Registration Date: 04/04/18 Care time: The patient presented to the Emergency Department on the above date and was hospitalized for further evaluation of their emergent condition. - New Patient This patient is new to me today: No - Critical Care Critical Care patient: No - Discharge Referral Referred to [facility] Med P.C.: No
[2018-04-09] MEDS ORDERED: POTASSIUM CHLORIDE TABS 20 MEQ TABLET.ER (FP) PO ONE (14:30)
[2018-04-09] MEDS: ALBUTEROL SO4 2.5/IPRATROPIUM 0.5 INH SOL 3 ML VIAL.NEB. NEB PRN (15:13)
--- NOTE | 2018-04-09 18:58 | PN ---
Progress Note (short form) - Note Progress Note: Patient seen and examined Anorechtic Diarrhea Decreased cough Received granix x 2 Last Vital Signs Temp Pulse Resp BP Pulse Ox 98.3 F 81 16 93/34 95 04/09/18 14:41 04/09/18 14:41 04/09/18 14:41 04/09/18 14:41 04/09/18 14:41 HEENT: SHIRLENE, EOM Intact Oropharynx: No thrush, No mucositis Cor: RSR, No murmurs, No gallops Lungs: right base -not clear- rhonchi Abd: Soft, Normal bowel sounds, No organomegaly Ext:No significant edema Skin: No rashes, Integument intact CBC, BMP 04/09/18 07:30 04/09/18 07:30 Abnormal Lab Results 04/09/18 04/09/18 04/09/18 07:30 07:30 07:30 WBC 2.0 L RBC 2.86 L Hgb 9.6 L Hct 27.4 L Plt Count 93 L Monocytes % 12.3 H Retic Count 1.95 H Sodium 133 L Random Glucose 147 H D Calcium 7.7 L Phosphorus 2.2 L Total Bilirubin 1.7 H AST 64 H D Alkaline Phosphatase 119 H Total Protein 5.0 L Albumin 2.0 L Impression: Babesiosis Pancytopenia Diarrhea Abnormal LFT's; albumin--2.0 Plan: Improvement in platelets.-spontaneous Improvement in WBC- s/p granix To discontinue in view of risk of splenic rupture Continue to monitor Antibiotics per ID. Stool culture Remains afebrile
[2018-04-10] MEDS ORDERED: PT OWN MED DRAWER 7, Y5N ONE ×3 (00:29→17:24)
[2018-04-10] MEDS: MEROPENEM 1 GM in DEXTROSE 5%-WATER 100 ML IVPB SCH ×3 (01:06→17:41)
[2018-04-10] MEDS: ACETAMINOPHEN 325 MG TABLET (FP) PO PRN (03:49)
--- NOTE | 2018-04-10 07:56 | PN ---
Physical Exam: SUBJECTIVE: Patient seen and examined at the bedside. Feels overall better today, some intermittent dry cough. Reports back muscle pain. OBJECTIVE: Lidoderm patch for back muscle pain encourged incentive spirometer stable room air neutropenic precautions Vital Signs Period Temp Pulse Resp BP Sys/Ackerman Pulse Ox Last 24 Hr 97.6 F-98.9 F 71-88 16-19 93-104/34-45 92-95 GENERAL: The patient is awake, alert, and fully oriented, in no acute distress. HEAD: Normal with no signs of trauma. EYES: PERRL, extraocular movements intact, sclera anicteric, conjunctiva clear. No ptosis. ENT: Ears normal, nares patent, oropharynx clear without exudates, moist mucous membranes. NECK: Trachea midline, full range of motion, supple. LUNGS: Breath sounds equal, diminished at the bases HEART: Regular rate and rhythm, S1, S2 without murmur, rub or gallop. ABDOMEN: Soft, nontender, nondistended, normoactive bowel sounds, no guarding, no rebound, no hepatosplenomegaly, no masses. EXTREMITIES: no edema. NEUROLOGICAL: Normal speech, ambulating in room, gait steady PSYCH: Normal mood, normal affect. SKIN: Warm, dry, normal turgor, no rashes or lesions noted Laboratory Results - last 24 hr 04/09/18 04/09/18 04/09/18 07:30 07:30 07:30 WBC 2.0 L RBC 2.86 L Hgb 9.6 L Hct 27.4 L MCV 95.9 MCH 33.5 MCHC 35.0 RDW 13.4 Plt Count 93 L MPV 7.7 Absolute Neuts (auto) 1.1 Neutrophils % 51.6 Lymphocytes % 34.2 Monocytes % 12.3 H Eosinophils % 0.9 Basophils % 1.0 Retic Count 1.95 H Sodium 133 L Potassium 3.5 Chloride 100 Carbon Dioxide 24 Anion Gap 9 BUN 8 Creatinine 0.6 Creat Clearance w eGFR > 60 Random Glucose 147 H D Calcium 7.7 L Phosphorus 2.2 L Magnesium 2.1 Total Bilirubin 1.7 H AST 64 H D ALT 38 D Alkaline Phosphatase 119 H Total Protein 5.0 L Albumin 2.0 L Active Medications Generic Name Dose Route Start Last Admin Trade Name Freq PRN Reason Stop Dose Admin Acetaminophen 1,000 mg 04/05/18 20:22 Ofirmev Injection - IVPB Q6H PRN FEVER Acetaminophen 650 mg 04/06/18 18:37 04/10/18 03:49 Tylenol - PO 650 mg Q6H PRN Administration PAIN 1-3 Albuterol/Ipratropium 1 amp 04/06/18 11:11 04/09/18 15:13 Duoneb - NEB 1 amp Q6H PRN Administration SHORTNESS OF BREATH Atovaquone 750 mg 04/07/18 17:45 04/09/18 17:44 Mepron - PO 750 mg BIDWM TRAE Administration Guaifenesin 10 ml 04/04/18 14:56 04/07/18 21:34 Robitussin Dm - PO 10 ml Q6H PRN Administration COUGH Meropenem 1 gm/ Dextrose 100 mls @ 200 mls/hr 04/05/18 18:00 04/10/18 01:06 IVPB 200 mls/hr Q8H-IV TRAE Administration Doxycycline Hyclate 100 mg/ 100 mls @ 100 mls/hr 04/05/18 18:00 04/09/18 17: 47 Dextrose IVPB 100 mls/hr BID@1000,1800 TRAE Administration Azithromycin 250 mls @ 250 mls/hr 04/07/18 17:45 04/09/18 10:34 Zithromax 500mg Ivpb (Pre-Docked) IVPB 250 mls/hr DAILY TRAE Administration Lactobacillus Acidophilus 1 tab 04/05/18 14:45 04/09/18 10:17 Bacid - PO 1 tab DAILY TRAE Administration Pantoprazole Sodium 40 mg 04/09/18 10:00 04/09/18 10:17 Protonix - PO 40 mg DAILY TRAE Administration ASSESSMENT/PLAN: Patient is a 72 year old female with a past medical history of neutropenia ( follows Dr. Stearns outpatient), hiatial hernia, past surgical history of failed fundoplication 3 yrs prior. patient was admitted from the emergency department for neutropenic fever and pancytopenia, secondary to babesia. Hem: Neutropoenia/Pancytopenia/Babesia: On Mepron, azithromycin, doxycycline, meropenem. 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 Neutropenic precautions. Platelets improving. Pulm: Intermittent dry cough. chest xray reviewed and appears improved. Tolerating room air. Incentive spirometer. Skeletal: Back muscular pain. On Lidoderm patch. GI: Diarrhea: resolved. cdiff negative. fen tolerating PO monitor electrolytes; hyponatremia improving low salt diet prophy ambuatory, scds only on protonix full code Visit type - Emergency Visit Emergency Visit: Yes ED Registration Date: 04/04/18 Care time: The patient presented to the Emergency Department on the above date and was hospitalized for further evaluation of their emergent condition. - New Patient This patient is new to me today: No - Critical Care Critical Care patient: No - Discharge Referral Referred to [facility] Med P.C.: No
[2018-04-10] MEDS: ATOVAQUONE 750 MG/5 ML (UNIT-DOSE PACKAGING) PO SCH ×2 (08:30→19:57)
[2018-04-10] MEDS: AZITHROMYCIN IVPB 250 ML IVPB SCH (09:00)
[2018-04-10 09:19] LABS: ALBUMIN 1.9 g/dl (3.5-5.0); ALK PHOS 99 U/L (32-92); ANION GAP 6 (8-16); BILIRUBIN,TOTAL 1.6 mg/dl (0.2-1.0); BLOOD UREA NITROGEN 7 mg/dl (7-18); CALCIUM 7.4 mg/dl (8.4-10.2); CHLORIDE 101 mmol/L (98-107); CO2 26 mmol/L (22-28); CREATININE 0.7 mg/dl (0.6-1.3); GLUCOSE,RANDOM 104 mg/dl (74-106); MAGNESIUM 2.1 mg/dL (1.8-2.4); PHOSPHOROUS 2.9 mg/dl (2.5-4.6); SGOT/AST 45 U/L (10-42); SGPT/ALT 31 U/L (10-40); SODIUM 133 mmol/L (136-145); TOT PROT 4.4 g/dl (6.4-8.3)
[2018-04-10] MEDS: LIDOCAINE 5% TOPICAL PATCH TP SCH (10:00)
[2018-04-10] MEDS: LACTOBACILLUS ACIDOPHILUS 1 TABLET PO SCH (10:00)
[2018-04-10] MEDS: PANTOPRAZOLE 40 MG TABLET (FP) PO SCH (10:05)
[2018-04-10 10:50] LABS: HEMATOCRIT 24.5 % (32.4-45.2); HEMOGLOBIN 8.3 GM/dl (10.7-15.3); MCH 32.5 pg (25.7-33.7); MCHC 33.9 g/dl (32.0-36.0); MEAN CELL VOLUME 95.9 fl (80-96); MEAN PLT VOLUME 7.5 fl (7.5-11.1); PLATELET COUNT 126 K/MM3 (134-434); RBC 2.55 M/mm3 (3.60-5.2); RDW 13.3 % (11.6-15.6); WHITE BLOOD COUNT 3.5 K/mm3 (4.0-10.8)
[2018-04-10 10:53] LABS: ADD RBC MORPHOLOGY YES
--- NOTE | 2018-04-10 12:04 | PN ---
Progress Note (short form) - Note Progress Note: cough improved but stilll present feels well no diarrhea today Vital Signs Period Temp Pulse Resp BP Sys/Ackerman Pulse Ox Last 24 Hr 98.2 F-98.9 F 79-88 16-19 93-104/34-45 92-95 cor-rrr llungs clear abd soft,nt ext no edema CBC, BMP 04/10/18 07:20 04/10/18 07:20 differential pending Microbiology 04/04/18 15:06 Blood - Peripheral Venous Blood Culture - Final NO GROWTH AFTER 5 DAYS INCUBATION 04/04/18 15:06 Blood - Peripheral Venous Blood Culture - Final NO GROWTH AFTER 5 DAYS INCUBATION 04/09/18 07:30 Blood - Peripheral Venous Blood Parasites Smear - Final Babesia Species 04/05/18 11:50 Stool Salmonella/Shigella Culture - Final 04/05/18 11:50 Stool Campylobacter Culture - Final NO GROWTH OF CAMPYLOBACTER SPECIES OBTAINED 04/05/18 11:50 Stool Yersinia Culture - Final NO GROWTH OF YERSINIA SPECIES OBTAINED 04/05/18 11:50 Stool Vibrio Culture - Final NO GROWTH OF VIBRIO SPECIES OBTAINED 04/05/18 11:50 Stool Escherichia coli 0157 Culture - Final NO GROWTH OF E COLI 0157 OBTAINED 04/07/18 12:31 Blood - Peripheral Venous Blood Parasites Smear - Preliminary Babesia Species 04/07/18 12:18 Stool Clostridium difficile Antigen (RADHA) - Final 04/07/18 12:18 Stool Clostridium difficile Toxin Assay - Final 04/05/18 14:14 Throat Throat Culture - Final NO BETA HEMOLYTIC STREPTOCOCCI ISOLATED 04/05/18 14:14 Throat Group A Strep Rapid Antigen - Final NEGATIVE FOR THE ANTIGEN OF BETA HEMOLYTIC STREP GROUP A 04/04/18 18:20 Urine - Urine Clean Catch Urine Culture - Final NO GROWTH OBTAINED 04/05/18 14:40 Nasopharyngeal Swab Respiratory Syncytial Virus Ag - Final 04/05/18 14:40 Nasopharyngeal Swab Influenza Types A,B Antigen - Final 04/05/18 14:40 Nasopharyngeal Swab - Final a/p babesiosis pancytopenia- improved, platelets recovering continue mepron/zithromax- day #3 on doxycycline/meropenem- day #6 bsroadspectrumantibiotics awaiting differential on cbc, if no longer neutropenic, will d/c meropenem continue doxycycline for empiric tick related illness repeat smear in am d/w patient and daughter at bedside
[2018-04-10] MEDS: DOXYCYCLINE INJECTION 100 MG in DEXTROSE 5%-WATER - 100 ML IVPB SCH (22:05)
[2018-04-10] MEDS: LIDOCAINE PATCH REMOVAL MC SCH (22:05)
[2018-04-11] MEDS: MEROPENEM 1 GM in DEXTROSE 5%-WATER 100 ML IVPB SCH ×2 (02:38→10:09)
[2018-04-11] MEDS: ATOVAQUONE 750 MG/5 ML (UNIT-DOSE PACKAGING) PO SCH ×2 (08:20→17:09)
[2018-04-11] MEDS: AZITHROMYCIN IVPB 250 ML IVPB SCH (09:00)
[2018-04-11 09:56] LABS: HEMOGLOBIN 8.6 GM/dl (10.7-15.3); MCH 33.3 pg (25.7-33.7); MCHC 34.6 g/dl (32.0-36.0); MEAN CELL VOLUME 96.3 fl (80-96); MEAN PLT VOLUME 7.7 fl (7.5-11.1); PLATELET COUNT 151 K/MM3 (134-434); RBC 2.59 M/mm3 (3.60-5.2); RDW 13.9 % (11.6-15.6)
[2018-04-11] MEDS: DOXYCYCLINE INJECTION 100 MG in DEXTROSE 5%-WATER - 100 ML IVPB SCH ×2 (10:00→21:33)
[2018-04-11] MEDS: LACTOBACILLUS ACIDOPHILUS 1 TABLET PO SCH (10:08)
[2018-04-11 10:09] LABS: ADD RBC MORPHOLOGY YES
[2018-04-11] MEDS: LIDOCAINE 5% TOPICAL PATCH TP SCH (10:09)
[2018-04-11] MEDS: PANTOPRAZOLE 40 MG TABLET (FP) PO SCH (10:09)
[2018-04-11 10:17] LABS: ALBUMIN 2.1 g/dl (3.5-5.0); ALK PHOS 106 U/L (32-92); ANION GAP 5 (8-16); BILIRUBIN,TOTAL 1.2 mg/dl (0.2-1.0); BLOOD UREA NITROGEN 6 mg/dl (7-18); CALCIUM 7.6 mg/dl (8.4-10.2); CHLORIDE 101 mmol/L (98-107); CO2 26 mmol/L (22-28); CREATININE 0.6 mg/dl (0.6-1.3); GLUCOSE,RANDOM 96 mg/dl (74-106); SGOT/AST 39 U/L (10-42); SGPT/ALT 28 U/L (10-40); SODIUM 132 mmol/L (136-145)
--- NOTE | 2018-04-11 10:57 | PN ---
Physical Exam: SUBJECTIVE: Patient seen and examined at the bedside. Feels tired today, reports throat discomfort. OBJECTIVE: noted to have small white patches in back of throat, will start nystatin Vital Signs Period Temp Pulse Resp BP Sys/Ackerman Pulse Ox Last 24 Hr 97.6 F-98.4 F 65-82 18-19 100-118/39-44 95-97 GENERAL: The patient is awake, alert, and fully oriented, in no acute distress. HEAD: Normal with no signs of trauma. EYES: PERRL, extraocular movements intact, sclera anicteric, conjunctiva clear. No ptosis. ENT: Ears normal, nares patent, oropharynx clear without exudates, moist mucous membranes. NECK: Trachea midline, full range of motion, supple. LUNGS: Breath sounds equal, diminished at the bases HEART: Regular rate and rhythm, S1, S2 without murmur, rub or gallop. ABDOMEN: Soft, nontender, nondistended, normoactive bowel sounds, no guarding, no rebound, no hepatosplenomegaly, no masses. EXTREMITIES: no edema. NEUROLOGICAL: Normal speech, ambulating in room, gait steady PSYCH: Normal mood, normal affect. SKIN: Warm, dry, normal turgor, no rashes or lesions noted Laboratory Results - last 24 hr 04/11/18 04/11/18 06:00 06:00 WBC 5.0 RBC 2.59 L Hgb 8.6 L Hct 25.0 L MCV 96.3 H MCH 33.3 MCHC 34.6 RDW 13.9 Plt Count 151 MPV 7.7 Absolute Neuts (auto) 2.8 Neutrophils % No Result Required. Lymphocytes % No Result Required. Sodium 132 L Potassium 4.0 Chloride 101 Carbon Dioxide 26 Anion Gap 5 L BUN 6 L Creatinine 0.6 Creat Clearance w eGFR > 60 Random Glucose 96 Calcium 7.6 L Total Bilirubin 1.2 H AST 39 ALT 28 Alkaline Phosphatase 106 H Total Protein 5.0 L Albumin 2.1 L Active Medications Generic Name Dose Route Start Last Admin Trade Name Freq PRN Reason Stop Dose Admin Acetaminophen 1,000 mg 04/05/18 20:22 Ofirmev Injection - IVPB Q6H PRN FEVER Acetaminophen 650 mg 04/06/18 18:37 04/10/18 03:49 Tylenol - PO 650 mg Q6H PRN Administration PAIN 1-3 Albuterol/Ipratropium 1 amp 04/06/18 11:11 04/09/18 15:13 Duoneb - NEB 1 amp Q6H PRN Administration SHORTNESS OF BREATH Atovaquone 750 mg 04/07/18 17:45 04/11/18 08:20 Mepron - PO 750 mg BIDWM TRAE Administration Guaifenesin 10 ml 04/04/18 14:56 04/07/18 21:34 Robitussin Dm - PO 10 ml Q6H PRN Administration COUGH Meropenem 1 gm/ Dextrose 100 mls @ 200 mls/hr 04/05/18 18:00 04/11/18 10:09 IVPB 200 mls/hr Q8H-IV TRAE Administration Azithromycin 250 mls @ 250 mls/hr 04/07/18 17:45 04/11/18 09:00 Zithromax 500mg Ivpb (Pre-Docked) IVPB 250 mls/hr DAILY TRAE Administration Doxycycline Hyclate 100 mg/ 100 mls @ 100 mls/hr 04/10/18 22:00 04/10/18 22: 05 Dextrose IVPB 100 mls/hr 1000,2200 TRAE Administration Lactobacillus Acidophilus 1 tab 04/05/18 14:45 04/11/18 10:08 Bacid - PO 1 tab DAILY TRAE Administration Lidocaine 1 patch 04/10/18 10:00 04/11/18 10:09 Lidoderm Patch - TP 1 patch DAILY TRAE Administration Miscellaneous 1 each 04/10/18 22:00 04/10/18 22:05 Lidoderm Patch Removal MC 1 each DAILY@2200 TRAE Administration Nystatin 500,000 units 04/11/18 12:00 Nystatin Oral Suspension - PO Q6HPO TRAE Pantoprazole Sodium 40 mg 04/09/18 10:00 04/11/18 10:09 Protonix - PO 40 mg DAILY TRAE Administration ASSESSMENT/PLAN: Patient is a 72 year old female with a past medical history of neutropenia ( follows Dr. Stearns outpatient), hiatial hernia, past surgical history of failed fundoplication 3 yrs prior. patient was admitted from the emergency department for neutropenic fever and pancytopenia, secondary to babesia. Hem: Neutropoenia/Pancytopenia/Babesia: On Mepron, azithromycin, doxycycline. 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 Neutropenic precautions. Platelets improving. Pulm: Intermittent dry cough. chest xray reviewed and appears improved. Tolerating room air. Incentive spirometer. ENT: Throat discomfort: Started on Nystatin for thrush. Skeletal: Back muscular pain. On Lidoderm patch. GI: Diarrhea: resolved. cdiff negative. fen tolerating PO monitor electrolytes; hyponatremia improving low salt diet prophy ambuatory, scds only on protonix full code Visit type - Emergency Visit Emergency Visit: Yes ED Registration Date: 04/04/18 Care time: The patient presented to the Emergency Department on the above date and was hospitalized for further evaluation of their emergent condition. - New Patient This patient is new to me today: Yes Date on this admission: 04/11/18 - Critical Care Critical Care patient: No - Discharge Referral Referred to [id number] Med P.C.: No
[2018-04-11] MEDS: NYSTATIN 500,000 UNITS/5 ML SUSPENSION PO SCH ×3 (12:00→23:47)
[2018-04-11 14:00] LABS: SMUDGE CELLS 2+
[2018-04-11 14:01] LABS: ACANTHOCYTES 1+; MACROCYTOSIS 2+; OVALOCYTE 1+; TEAR DROP CELLS 2+
--- NOTE | 2018-04-11 15:40 | PN ---
Progress Note (short form) - Note Progress Note: doing well still fatigued Vital Signs Period Temp Pulse Resp BP Sys/Ackerman Pulse Ox Last 24 Hr 97.6 F-98.4 F 65-82 18-19 100-118/39-44 95-97 a/p babesiosis pancytopenia- improved, platelets recovering continue mepron/zithromax- day #4 on doxycycline/meropenem- day #7 broadspectrum antibiotics d/c meropenem, switch doxycycline to po repeat smear in am d/w patient and daughter at bedside
[2018-04-11] MEDS: ACETAMINOPHEN 325 MG TABLET (FP) PO PRN ×2 (17:08→21:32)
[2018-04-11] MEDS ORDERED: PT OWN MED DRAWER 7, Y5N ONE (21:25)
[2018-04-11] MEDS: LIDOCAINE PATCH REMOVAL MC SCH (21:33)
[2018-04-12] MEDS: NYSTATIN 500,000 UNITS/5 ML SUSPENSION PO SCH ×4 (05:30→23:36)
--- NOTE | 2018-04-12 07:50 | PN ---
Physical Exam: SUBJECTIVE: Patient seen and examined, patient resting comfortably in bedside chair reports last cough OBJECTIVE: Patient is a 72-year-old female, with a past medical history of chronic Thrombocytopenia and Hital hernia, past surgical history of failed fundoplication 3 yrs ago. patient was admitted from the emergency department for neutropenic fever and pancytopenia, secondary to babesia Vital Signs Period Temp Pulse Resp BP Sys/Ackerman Pulse Ox Last 24 Hr 97.7 F-98.1 F 79-80 19-19 97-125/47-50 96-98 GENERAL: The patient is awake, alert, and fully oriented, in no acute distress. HEAD: Normal with no signs of trauma. EYES: PERRL, extraocular movements intact, sclera anicteric, conjunctiva clear. No ptosis. ENT: Ears normal, nares patent, oropharynx clear without exudates, moist mucous membranes. NECK: Trachea midline, full range of motion, supple. LUNGS: Breath sounds equal, clear to auscultation bilaterally, no wheezes, no crackles, no accessory muscle use. HEART: Regular rate and rhythm, S1, S2 without murmur, rub or gallop. ABDOMEN: Soft, nontender, nondistended, normoactive bowel sounds, no guarding, no rebound, no hepatosplenomegaly, no masses. EXTREMITIES: 2+ pulses, warm, well-perfused, no edema. NEUROLOGICAL: Cranial nerves II through XII grossly intact. Normal speech, gait not observed. PSYCH: Normal mood, normal affect. SKIN: Warm, dry, normal turgor, no rashes or lesions noted Laboratory Results - last 24 hr CBC WBC 5.0 K/mm3 (4.0-10.8) 04/11/18 06:00 RBC 2.59 M/mm3 (3.60-5.2) L 04/11/18 06:00 Hgb 8.6 GM/dl (10.7-15.3) L 04/11/18 06:00 Hct 25.0 % (32.4-45.2) L 04/11/18 06:00 MCV 96.3 fl (80-96) H 04/11/18 06:00 MCH 33.3 pg (25.7-33.7) 04/11/18 06:00 MCHC 34.6 g/dl (32.0-36.0) 04/11/18 06:00 RDW 13.9 % (11.6-15.6) 04/11/18 06:00 Plt Count 151 K/MM3 (134-434) 04/11/18 06:00 MPV 7.7 fl (7.5-11.1) 04/11/18 06:00 Absolute Neuts (auto) 2.8 # 04/11/18 06:00 Neutrophils % No Result Required. 04/11/18 06:00 Neutrophils % (Manual) 44.0 % (42.8-82.8) 04/11/18 06:00 Band Neutrophils % 28.0 % (0-10) H 04/11/18 06:00 Lymphocytes % No Result Required. 04/11/18 06:00 Lymphocytes % (Manual) 15.0 % (8-40) 04/11/18 06:00 Monocytes % 12.3 % (3.8-10.2) H 04/09/18 07:30 Monocytes % (Manual) 5 % (3.8-10.2) 04/11/18 06:00 Eosinophils % 0.9 % (0-4.5) 04/09/18 07:30 Eosinophils % (Manual) 2.0 % (0-4.5) 04/11/18 06:00 Basophils % 1.0 % (0-2.0) 04/09/18 07:30 Metamyelocytes 1 % (0-2) 04/11/18 06:00 Smudge Cells 2+ 04/11/18 06:00 Other Cell Type 04/08/18 07:30 Hypochromia 1+ 04/04/18 12:47 Platelet Estimate Decreased 04/10/18 07:20 Macrocytosis 2+ 04/11/18 06:00 Spherocytes 2+ 04/11/18 06:00 Tear Drop Cells 2+ 04/11/18 06:00 Ovalocytes 1+ 04/11/18 06:00 Acanthocytes (Spur) 1+ 04/11/18 06:00 Retic Count 1.95 % (0.5-1.5) H 04/09/18 07:30 CMP Sodium 137 mmol/L (136-145) 04/12/18 08:00 Potassium 4.0 mmol/L (3.5-5.1) 04/12/18 08:00 Chloride 103 mmol/L (98-107) 04/12/18 08:00 Carbon Dioxide 28 mmol/L (22-28) 04/12/18 08:00 Anion Gap 6 (8-16) L 04/12/18 08:00 BUN 7 mg/dl (7-18) 04/12/18 08:00 Creatinine 0.7 mg/dl (0.6-1.3) 04/12/18 08:00 Creat Clearance w eGFR > 60 (>60) 04/12/18 08:00 Random Glucose 108 mg/dl (74-106) H 04/12/18 08:00 Serum Osmolality 262 mOsmol/kg (280-301) L 04/04/18 12:47 Lactic Acid 2.0 mmol/L (0.0-2.0) 04/04/18 16:50 Uric Acid 2.6 mg/dl (2.6-7.2) 04/06/18 07:45 Calcium 8.0 mg/dl (8.4-10.2) L 04/12/18 08:00 Phosphorus 3.5 mg/dl (2.5-4.6) D 04/12/18 08:00 Magnesium 2.2 mg/dL (1.8-2.4) 04/12/18 08:00 Iron 21 ug/dL (27-139) L 04/06/18 07:45 TIBC 141 ug/dL (250-450) L 04/06/18 07:45 Iron Saturation 15 % (15-55) 04/06/18 07:45 Ferritin 2276 ng/ml (6.9-282.5) H 04/06/18 07:45 Total Bilirubin 1.2 mg/dl (0.2-1.0) H 04/12/18 08:00 AST 31 U/L (10-42) D 04/12/18 08:00 ALT 27 U/L (10-40) 04/12/18 08:00 Alkaline Phosphatase 101 U/L (32-92) H 04/12/18 08:00 LD Total 484 U/L (91-180) H 04/06/18 07:45 Total Protein 5.2 g/dl (6.4-8.3) L 04/12/18 08:00 Total Protein (PEP) 4.3 g/dL (6.0-8.5) L 04/06/18 07:45 Albumin 2.3 g/dl (3.5-5.0) L 04/12/18 08:00 Albumin (PEP) 1.9 gm/dl (2.9-4.4) L 04/06/18 07:45 Globulin 2.4 g/dL (2.2-3.9) 04/06/18 07:45 Albumin/Globulin Ratio 0.8 (0.7-1.7) 04/06/18 07:45 Beta Globulins 0.9 gm/dL (0.7-1.3) 04/06/18 07:45 Lipase 62 U/L (73-393) L 04/04/18 12:47 Vitamin B12 1064 pg/ml (180-914) H 04/06/18 07:45 Folate 1191 ng/mL (>498) 04/06/18 07:45 Folate Hemolysate 326.3 ng/mL (Not Estab.) 04/06/18 07:45 TSH 0.48 uIU/ml (0.358-3.74) 04/05/18 08:00 Free T4 1.15 ng/dl (0.76-1.46) 04/06/18 07:45 Active Medications Generic Name Dose Route Start Last Admin Trade Name Pradeepq PRN Reason Stop Dose Admin Acetaminophen 1,000 mg 04/05/18 20:22 Ofirmev Injection - IVPB Q6H PRN FEVER Acetaminophen 650 mg 04/06/18 18:37 04/11/18 21:32 Tylenol - PO 650 mg Q6H PRN Administration PAIN 1-3 Atovaquone 750 mg 04/07/18 17:45 04/11/18 17:09 Mepron - PO 750 mg BIDWM TRAE Administration Guaifenesin 10 ml 04/04/18 14:56 04/07/18 21:34 Robitussin Dm - PO 10 ml Q6H PRN Administration COUGH Azithromycin 250 mls @ 250 mls/hr 04/07/18 17:45 04/11/18 09:00 Zithromax 500mg Ivpb (Pre-Docked) IVPB 250 mls/hr DAILY TRAE Administration Doxycycline Hyclate 100 mg/ 100 mls @ 100 mls/hr 04/10/18 22:00 04/11/18 21: 33 Dextrose IVPB 100 mls/hr 1000,2200 TRAE Administration Lactobacillus Acidophilus 1 tab 04/05/18 14:45 04/11/18 10:08 Bacid - PO 1 tab DAILY TRAE Administration Lidocaine 1 patch 04/10/18 10:00 04/11/18 10:09 Lidoderm Patch - TP 1 patch DAILY TRAE Administration Miscellaneous 1 each 04/10/18 22:00 04/11/18 21:33 Lidoderm Patch Removal MC 1 each DAILY@2200 TRAE Administration Nystatin 500,000 units 04/11/18 12:00 04/12/18 05:30 Nystatin Oral Suspension - PO 500,000 units Q6HPO TRAE Administration Pantoprazole Sodium 40 mg 04/09/18 10:00 04/11/18 10:09 Protonix - PO 40 mg DAILY TRAE Administration ASSESSMENT/PLAN: 1) heme/onc : Neutropoenia/Pancytopenia/Babesia - continue Mepron, azithromycin, doxycycline as per ID - Patient's machine load clerk Dr. Stearns following. - wbc 5.0 improved after neupogen (04/08 & 04/09). - Platelets trending upward - sepsis resolved, secondary to tick borne illness 2) Pulm: cough - improved 3)GI: Diarrhea: - resolved. cdiff negative. fen tolerating PO monitor electrolytes; hyponatremia improving low salt diet prophy ambuatory, scds only on protonix full code Visit type - Emergency Visit Emergency Visit: Yes ED Registration Date: 04/04/18 Care time: The patient presented to the Emergency Department on the above date and was hospitalized for further evaluation of their emergent condition. - New Patient This patient is new to me today: No - Critical Care Critical Care patient: No - Discharge Referral Referred to [facility] Med P.C.: No
[2018-04-12] MEDS: ATOVAQUONE 750 MG/5 ML (UNIT-DOSE PACKAGING) PO SCH ×2 (08:30→17:25)
[2018-04-12 08:35] LABS: ALBUMIN 2.3 g/dl (3.5-5.0); ALK PHOS 101 U/L (32-92); ANION GAP 6 (8-16); BILIRUBIN,TOTAL 1.2 mg/dl (0.2-1.0); BLOOD UREA NITROGEN 7 mg/dl (7-18); CHLORIDE 103 mmol/L (98-107); CO2 28 mmol/L (22-28); CREATININE 0.7 mg/dl (0.6-1.3); GLUCOSE,RANDOM 108 mg/dl (74-106); MAGNESIUM 2.2 mg/dL (1.8-2.4); SGOT/AST 31 U/L (10-42); SGPT/ALT 27 U/L (10-40); SODIUM 137 mmol/L (136-145); TOT PROT 5.2 g/dl (6.4-8.3)
--- NOTE | 2018-04-12 09:38 | PN ---
Progress Note, Physician History of Present Illness: OOB in chair C/O generalized weakness Occasional cough, R pleuritic chest pain No fever/ chills Tolerating antibiotics Counts improved WBC 5K plt 151K - Current Medication List Current Medications: Active Medications Acetaminophen (Ofirmev Injection -) 1,000 mg IVPB Q6H PRN PRN Reason: FEVER Acetaminophen (Tylenol -) 650 mg PO Q6H PRN PRN Reason: PAIN 1-3 Last Admin: 04/11/18 21:32 Dose: 650 mg Atovaquone (Mepron -) 750 mg PO BIDWM [facility] Last Admin: 04/12/18 08:30 Dose: 750 mg Guaifenesin (Robitussin Dm -) 10 ml PO Q6H PRN PRN Reason: COUGH Last Admin: 04/07/18 21:34 Dose: 10 ml Azithromycin (Zithromax 500mg Ivpb (Pre-Docked)) 250 mls @ 250 mls/hr IVPB DAILY [facility] Last Admin: 04/11/18 09:00 Dose: 250 mls/hr Doxycycline Hyclate 100 mg/ (Dextrose) 100 mls @ 100 mls/hr IVPB 1000,2200 [facility] Last Admin: 04/11/18 21:33 Dose: 100 mls/hr Lactobacillus Acidophilus (Bacid -) 1 tab PO DAILY [facility] Last Admin: 04/11/18 10:08 Dose: 1 tab Lidocaine (Lidoderm Patch -) 1 patch TP DAILY [facility] Last Admin: 04/11/18 10:09 Dose: 1 patch Miscellaneous (Lidoderm Patch Removal) 1 each MC DAILY@2200 [facility] Last Admin: 04/11/18 21:33 Dose: 1 each Nystatin (Nystatin Oral Suspension -) 500,000 units PO Q6HPO [facility] Last Admin: 04/12/18 05:30 Dose: 500,000 units Pantoprazole Sodium (Protonix -) 40 mg PO DAILY [facility] Last Admin: 04/11/18 10:09 Dose: 40 mg - Objective Vital Signs: Vital Signs Temperature 97.7 F 04/12/18 06:00 Pulse Rate 79 04/12/18 06:00 Respiratory Rate 19 04/12/18 09:00 Blood Pressure 125/50 04/12/18 06:00 O2 Sat by Pulse Oximetry (%) 98 04/12/18 09:00 Constitutional: Yes: No Distress Eyes: Yes: Conjunctiva Clear Cardiovascular: Yes: Regular Rate and Rhythm, S1, S2 Respiratory: Yes: CTA Bilaterally Gastrointestinal: Yes: Normal Bowel Sounds, Soft. No: Tenderness Edema: No Labs: CBC, BMP 04/11/18 06:00 04/12/18 08:00 INR, PTT INR 1.43 (0.82-1.09) H 04/06/18 07:45 Assessment/Plan Babesiosis Leukopenia/ thrombocytopenia- improved Day # 5 zithromax/ atovaquone Complete 10d course Continue empiric doxycycline Await Anaplasma serology
[2018-04-12] MEDS: PANTOPRAZOLE 40 MG TABLET (FP) PO SCH (10:04)
[2018-04-12] MEDS: LIDOCAINE 5% TOPICAL PATCH TP SCH (10:04)
[2018-04-12] MEDS: LACTOBACILLUS ACIDOPHILUS 1 TABLET PO SCH (10:04)
[2018-04-12] MEDS: AZITHROMYCIN IVPB 250 ML IVPB SCH (10:04)
[2018-04-12] MEDS: DOXYCYCLINE INJECTION 100 MG in DEXTROSE 5%-WATER - 100 ML IVPB SCH ×2 (10:06→21:39)
[2018-04-12 11:20] LABS: PLATELET ESTIMATE DECREASED
--- NOTE | 2018-04-12 20:14 | EKG ---
Test Reason : Blood Pressure : / mmHG Vent. Rate : 079 BPM Atrial Rate : 079 BPM P-R Int : 168 ms QRS Dur : 080 ms QT Int : 388 ms P-R-T Axes : 026 -04 016 degrees QTc Int : 444 ms NORMAL SINUS RHYTHM CANNOT RULE OUT INFERIOR INFARCT , AGE UNDETERMINED ABNORMAL ECG WHEN COMPARED WITH ECG OF 29-MAR-2018 12:41, NO SIGNIFICANT CHANGE WAS FOUND Confirmed by MD MIKA, ROSLYN ([id number]) on 04/12/2018 8:14:19 PM Referred By: Confirmed By:ROSLYN BRENNAN MD
[2018-04-12] MEDS: LIDOCAINE PATCH REMOVAL MC SCH (22:02)
[2018-04-13] MEDS: ACETAMINOPHEN 325 MG TABLET (FP) PO PRN (00:59)
[2018-04-13] MEDS: NYSTATIN 500,000 UNITS/5 ML SUSPENSION PO SCH ×3 (06:22→18:27)
[2018-04-13] MEDS ORDERED: PT OWN MED DRAWER 7, Y5N ONE ×4 (07:19→20:58)
[2018-04-13] MEDS: ATOVAQUONE 750 MG/5 ML (UNIT-DOSE PACKAGING) PO SCH (08:20)
[2018-04-13 08:54] LABS: ANION GAP 7 (8-16); BLOOD UREA NITROGEN 7 mg/dl (7-18); CALCIUM 8.1 mg/dl (8.4-10.2); CHLORIDE 105 mmol/L (98-107); CO2 26 mmol/L (22-28); CREATININE 0.6 mg/dl (0.6-1.3); GLUCOSE,RANDOM 103 mg/dl (74-106); MAGNESIUM 2.3 mg/dL (1.8-2.4); PHOSPHOROUS 3.6 mg/dl (2.5-4.6); POTASSIUM 4.3 mmol/L (3.5-5.1); SODIUM 138 mmol/L (136-145)
[2018-04-13] MEDS: LACTOBACILLUS ACIDOPHILUS 1 TABLET PO SCH (09:20)
[2018-04-13] MEDS: LIDOCAINE 5% TOPICAL PATCH TP SCH (09:24)
[2018-04-13] MEDS: PANTOPRAZOLE 40 MG TABLET (FP) PO SCH (09:25)
[2018-04-13] MEDS: DOXYCYCLINE INJECTION 100 MG in DEXTROSE 5%-WATER - 100 ML IVPB SCH ×2 (09:25→21:28)
[2018-04-13] MEDS: AZITHROMYCIN IVPB 250 ML IVPB SCH (09:25)
[2018-04-13 09:36] LABS: BASO % 1.2 % (0-2.0); HEMATOCRIT 27.3 % (32.4-45.2); HEMOGLOBIN 9.3 GM/dl (10.7-15.3); LYMPH % 27.5 % (8-40); MEAN CELL VOLUME 97.1 fl (80-96); MEAN PLT VOLUME 7.5 fl (7.5-11.1); MONO % 14.7 % (3.8-10.2); NEUT % 54.6 % (42.8-82.8); PLATELET COUNT 176 K/MM3 (134-434); RBC 2.81 M/mm3 (3.60-5.2); RDW 13.9 % (11.6-15.6); WHITE BLOOD COUNT 3.6 K/mm3 (4.0-10.8)
--- NOTE | 2018-04-13 12:50 | PN ---
Physical Exam: SUBJECTIVE: Patient seen and examined, reports feeling well, resting in bedside chair, tolerating diet. OBJECTIVE:Patient is a 72-year-old female, with a past medical history of chronic Thrombocytopenia and Hital hernia, past surgical history of failed fundoplication 3 yrs ago. patient was admitted from the emergency department for neutropenic fever and pancytopenia, secondary to babesia Vital Signs Period Temp Pulse Resp BP Sys/Ackerman Pulse Ox Last 24 Hr 97.6 F-98.0 F 74-82 18-18 109-116/42-62 94-96 GENERAL: The patient is awake, alert, and fully oriented, in no acute distress. HEAD: Normal with no signs of trauma. EYES: PERRL, extraocular movements intact, sclera anicteric, conjunctiva clear. No ptosis. ENT: Ears normal, nares patent, oropharynx clear without exudates, moist mucous membranes. NECK: Trachea midline, full range of motion, supple. LUNGS: Breath sounds equal, clear to auscultation bilaterally, no wheezes, no crackles, no accessory muscle use. HEART: Regular rate and rhythm, S1, S2 without murmur, rub or gallop. ABDOMEN: Soft, nontender, nondistended, normoactive bowel sounds, no guarding, no rebound, no hepatosplenomegaly, no masses. EXTREMITIES: 2+ pulses, warm, well-perfused, no edema. NEUROLOGICAL: Cranial nerves II through XII grossly intact. Normal speech, gait not observed. PSYCH: Normal mood, normal affect. SKIN: Warm, dry, normal turgor, no rashes or lesions noted Laboratory Results - last 24 hr 04/13/18 04/13/18 07:30 07:30 WBC 3.6 L RBC 2.81 L Hgb 9.3 L Hct 27.3 L MCV 97.1 H MCH 33.0 MCHC 34.0 RDW 13.9 Plt Count 176 MPV 7.5 Absolute Neuts (auto) 2.0 Neutrophils % 54.6 Lymphocytes % 27.5 Monocytes % 14.7 H Eosinophils % 2.0 Basophils % 1.2 Sodium 138 Potassium 4.3 Chloride 105 Carbon Dioxide 26 Anion Gap 7 L BUN 7 Creatinine 0.6 Creat Clearance w eGFR > 60 Random Glucose 103 Calcium 8.1 L Phosphorus 3.6 Magnesium 2.3 Active Medications Generic Name Dose Route Start Last Admin Trade Name Freq PRN Reason Stop Dose Admin Acetaminophen 1,000 mg 04/05/18 20:22 Ofirmev Injection - IVPB Q6H PRN FEVER Acetaminophen 650 mg 04/06/18 18:37 04/13/18 00:59 Tylenol - PO 650 mg Q6H PRN Administration PAIN 1-3 Atovaquone 750 mg 04/07/18 17:45 04/13/18 08:20 Mepron - PO 750 mg BIDWM TRAE Administration Guaifenesin 10 ml 04/04/18 14:56 04/07/18 21:34 Robitussin Dm - PO 10 ml Q6H PRN Administration COUGH Azithromycin 250 mls @ 250 mls/hr 04/07/18 17:45 04/13/18 09:25 Zithromax 500mg Ivpb (Pre-Docked) IVPB 250 mls/hr DAILY TRAE Administration Doxycycline Hyclate 100 mg/ 100 mls @ 100 mls/hr 04/10/18 22:00 04/13/18 09: 25 Dextrose IVPB 100 mls/hr 1000,2200 TRAE Administration Lactobacillus Acidophilus 1 tab 04/05/18 14:45 04/13/18 09:20 Bacid - PO 1 tab DAILY TRAE Administration Lidocaine 1 patch 04/10/18 10:00 04/13/18 09:24 Lidoderm Patch - TP 1 patch DAILY TRAE Administration Miscellaneous 1 each 04/10/18 22:00 04/12/18 22:02 Lidoderm Patch Removal MC 1 each DAILY@2200 TRAE Administration Nystatin 500,000 units 04/11/18 12:00 04/13/18 06:22 Nystatin Oral Suspension - PO 500,000 units Q6HPO TRAE Administration Pantoprazole Sodium 40 mg 04/09/18 10:00 04/13/18 09:25 Protonix - PO 40 mg DAILY TRAE Administration Microbiology 04/11/18 08:00 Blood - Peripheral Venous Blood Parasites Smear - Final 04/04/18 15:06 Blood - Peripheral Venous Blood Culture - Final NO GROWTH AFTER 5 DAYS INCUBATION 04/04/18 15:06 Blood - Peripheral Venous Blood Culture - Final NO GROWTH AFTER 5 DAYS INCUBATION 04/09/18 07:30 Blood - Peripheral Venous Blood Parasites Smear - Final Babesia Species 04/05/18 11:50 Stool Salmonella/Shigella Culture - Final 04/05/18 11:50 Stool Campylobacter Culture - Final NO GROWTH OF CAMPYLOBACTER SPECIES OBTAINED 04/05/18 11:50 Stool Yersinia Culture - Final NO GROWTH OF YERSINIA SPECIES OBTAINED 04/05/18 11:50 Stool Vibrio Culture - Final NO GROWTH OF VIBRIO SPECIES OBTAINED 04/05/18 11:50 Stool Escherichia coli 0157 Culture - Final NO GROWTH OF E COLI 0157 OBTAINED 04/07/18 12:31 Blood - Peripheral Venous Blood Parasites Smear - Preliminary Babesia Species 04/07/18 12:18 Stool Clostridium difficile Antigen (RADHA) - Final 04/07/18 12:18 Stool Clostridium difficile Toxin Assay - Final 04/05/18 14:14 Throat Throat Culture - Final NO BETA HEMOLYTIC STREPTOCOCCI ISOLATED 04/05/18 14:14 Throat Group A Strep Rapid Antigen - Final NEGATIVE FOR THE ANTIGEN OF BETA HEMOLYTIC STREP GROUP A 04/04/18 18:20 Urine - Urine Clean Catch Urine Culture - Final NO GROWTH OBTAINED 04/05/18 14:40 Nasopharyngeal Swab Respiratory Syncytial Virus Ag - Final, negative 04/05/18 14:40 Nasopharyngeal Swab Influenza Types A,B Antigen - Final, negative 04/05/18 14:40 Nasopharyngeal Swab - Final ASSESSMENT/PLAN: 1) heme/onc : Neutropoenia/Pancytopenia/Babesia - continue Mepron, azithromycin, doxycycline as per ID - Patient's dietary assistant Dr. Stearns following. - wbc 3.6 0 improved after neupogen (04/08 & 04/09). - Platelets wnl - sepsis resolved, secondary to tick borne illness 2) Pulm: cough - improved 3)GI: Diarrhea: - resolved. cdiff negative. fen tolerating PO monitor electrolytes; hyponatremia improving low salt diet prophy ambuatory, scds only on protonix full code Visit type - Emergency Visit Emergency Visit: Yes ED Registration Date: 04/04/18 Care time: The patient presented to the Emergency Department on the above date and was hospitalized for further evaluation of their emergent condition. - New Patient This patient is new to me today: No - Critical Care Critical Care patient: No - Discharge Referral Referred to [facility] Med P.C.: No
[2018-04-13] MEDS: LIDOCAINE PATCH REMOVAL MC SCH (21:28)
[2018-04-14] MEDS: NYSTATIN 500,000 UNITS/5 ML SUSPENSION PO SCH ×3 (00:18→12:07)
[2018-04-14] MEDS ORDERED: PT OWN MED DRAWER 7, Y5N ONE ×2 (08:02→08:54)
[2018-04-14] MEDS: ATOVAQUONE 750 MG/5 ML (UNIT-DOSE PACKAGING) PO SCH ×2 (09:00→09:04)
[2018-04-14] MEDS ORDERED: REFRIGERATED ANITBIOTICS ONE (09:15)
[2018-04-14] MEDS: LACTOBACILLUS ACIDOPHILUS 1 TABLET PO SCH (09:43)
[2018-04-14] MEDS: LIDOCAINE 5% TOPICAL PATCH TP SCH (09:43)
[2018-04-14] MEDS: PANTOPRAZOLE 40 MG TABLET (FP) PO SCH (09:43)
[2018-04-14] MEDS: AZITHROMYCIN IVPB 250 ML IVPB SCH (09:48)
[2018-04-14] MEDS: DOXYCYCLINE INJECTION 100 MG in DEXTROSE 5%-WATER - 100 ML IVPB SCH (09:48)
--- NOTE | 2018-04-14 11:09 | DS ---
Physical Exam: SUBJECTIVE: Patient seen and examined, patient is sitting in bedside chair, tolerating breakfast, patient denies any chest pain or shortness of breath. patient denies any tactile fevers OBJECTIVE: patient is a 72 yrs old F PMH of chronic Thrombocytopenia and Neutrogena since 2005 F/U with Dr Stearns last TWBC was 2.5 K 1 month ago usual platelet count around 100 K, also H/o Hital hernia failed fundoplication 3 yrs ago, not on any medication present with sever throat pain, , painful swallowing , nausea, vomiting cough with watery diarrhea and chills, in the Ed patient remained symptomatic couldn't tolerate PO w/u shows Hyponatremia, dehydration and Neutropenia with worsenong thrombocytopenia, admitted for further evaluation and management, no C/O haed ache, spontaneous bleeding, dysuria or chnage in MS. Vital Signs Period Temp Pulse Resp BP Sys/Ackerman Pulse Ox Last 24 Hr 97.9 F-98.7 F 72-88 18-19 102-126/45-55 94-98 PHYSICAL EXAM GENERAL: The patient is awake, alert, and fully oriented, in no acute distress. HEAD: Normal with no signs of trauma. EYES: PERRL, extraocular movements intact, sclera anicteric, conjunctiva clear. ENT: Ears normal, nares patent, oropharynx clear without exudates, moist mucous membranes. NECK: Trachea midline, full range of motion, supple. LUNGS: Breath sounds equal, clear to auscultation bilaterally, no wheezes, no crackles, no accessory muscle use. HEART: Regular rate and rhythm, S1, S2 without murmur, rub or gallop. ABDOMEN: Soft, nontender, nondistended, normoactive bowel sounds, no guarding, no rebound, no hepatosplenomegaly, no masses. EXTREMITIES: 2+ pulses, warm, well-perfused, no edema. NEUROLOGICAL: Cranial nerves II through XII grossly intact. Normal speech, gait not observed. PSYCH: Normal mood, normal affect. SKIN: Warm, dry, normal turgor, no rashes or lesions noted. LABS Laboratory Results - last 24 hr 04/06/18 07:45 A. phagocytophilum DNA Negative CBC WBC 3.6 K/mm3 (4.0-10.8) L 04/13/18 07:30 RBC 2.81 M/mm3 (3.60-5.2) L 04/13/18 07:30 Hgb 9.3 GM/dl (10.7-15.3) L 04/13/18 07:30 Hct 27.3 % (32.4-45.2) L 04/13/18 07:30 MCV 97.1 fl (80-96) H 04/13/18 07:30 MCH 33.0 pg (25.7-33.7) 04/13/18 07:30 MCHC 34.0 g/dl (32.0-36.0) 04/13/18 07:30 RDW 13.9 % (11.6-15.6) 04/13/18 07:30 Plt Count 176 K/MM3 (134-434) 04/13/18 07:30 MPV 7.5 fl (7.5-11.1) 04/13/18 07:30 Absolute Neuts (auto) 2.0 # 04/13/18 07:30 Neutrophils % 54.6 % (42.8-82.8) 04/13/18 07:30 Neutrophils % (Manual) 44.0 % (42.8-82.8) 04/11/18 06:00 Band Neutrophils % 28.0 % (0-10) H 04/11/18 06:00 Lymphocytes % 27.5 % (8-40) 04/13/18 07:30 Lymphocytes % (Manual) 15.0 % (8-40) 04/11/18 06:00 Monocytes % 14.7 % (3.8-10.2) H 04/13/18 07:30 Monocytes % (Manual) 5 % (3.8-10.2) 04/11/18 06:00 Eosinophils % 2.0 % (0-4.5) 04/13/18 07:30 Eosinophils % (Manual) 2.0 % (0-4.5) 04/11/18 06:00 Basophils % 1.2 % (0-2.0) 04/13/18 07:30 Metamyelocytes 1 % (0-2) 04/11/18 06:00 Smudge Cells 2+ 04/11/18 06:00 Other Cell Type 04/08/18 07:30 Hypochromia 1+ 04/04/18 12:47 Platelet Estimate Decreased 04/10/18 07:20 Macrocytosis 2+ 04/11/18 06:00 Spherocytes 2+ 04/11/18 06:00 Tear Drop Cells 2+ 04/11/18 06:00 Ovalocytes 1+ 04/11/18 06:00 Acanthocytes (Spur) 1+ 04/11/18 06:00 Retic Count 1.95 % (0.5-1.5) H 04/09/18 07:30 CMP Sodium 138 mmol/L (136-145) 04/13/18 07:30 Potassium 4.3 mmol/L (3.5-5.1) 04/13/18 07:30 Chloride 105 mmol/L (98-107) 04/13/18 07:30 Carbon Dioxide 26 mmol/L (22-28) 04/13/18 07:30 Anion Gap 7 (8-16) L 04/13/18 07:30 BUN 7 mg/dl (7-18) 04/13/18 07:30 Creatinine 0.6 mg/dl (0.6-1.3) 04/13/18 07:30 Creat Clearance w eGFR > 60 (>60) 04/13/18 07:30 Random Glucose 103 mg/dl (74-106) 04/13/18 07:30 Serum Osmolality 262 mOsmol/kg (280-301) L 04/04/18 12:47 Lactic Acid 2.0 mmol/L (0.0-2.0) 04/04/18 16:50 Uric Acid 2.6 mg/dl (2.6-7.2) 04/06/18 07:45 Calcium 8.1 mg/dl (8.4-10.2) L 04/13/18 07:30 Phosphorus 3.6 mg/dl (2.5-4.6) 04/13/18 07:30 Magnesium 2.3 mg/dL (1.8-2.4) 04/13/18 07:30 Iron 21 ug/dL (27-139) L 04/06/18 07:45 TIBC 141 ug/dL (250-450) L 04/06/18 07:45 Iron Saturation 15 % (15-55) 04/06/18 07:45 Ferritin 2276 ng/ml (6.9-282.5) H 04/06/18 07:45 Total Bilirubin 1.2 mg/dl (0.2-1.0) H 04/12/18 08:00 AST 31 U/L (10-42) D 04/12/18 08:00 ALT 27 U/L (10-40) 04/12/18 08:00 Alkaline Phosphatase 101 U/L (32-92) H 04/12/18 08:00 LD Total 484 U/L (91-180) H 04/06/18 07:45 Total Protein 5.2 g/dl (6.4-8.3) L 04/12/18 08:00 Total Protein (PEP) 4.3 g/dL (6.0-8.5) L 04/06/18 07:45 Albumin 2.3 g/dl (3.5-5.0) L 04/12/18 08:00 Albumin (PEP) 1.9 gm/dl (2.9-4.4) L 04/06/18 07:45 Globulin 2.4 g/dL (2.2-3.9) 04/06/18 07:45 Albumin/Globulin Ratio 0.8 (0.7-1.7) 04/06/18 07:45 Beta Globulins 0.9 gm/dL (0.7-1.3) 04/06/18 07:45 Lipase 62 U/L (73-393) L 04/04/18 12:47 Vitamin B12 1064 pg/ml (180-914) H 04/06/18 07:45 Folate 1191 ng/mL (>498) 04/06/18 07:45 Folate Hemolysate 326.3 ng/mL (Not Estab.) 04/06/18 07:45 TSH 0.48 uIU/ml (0.358-3.74) 04/05/18 08:00 Free T4 1.15 ng/dl (0.76-1.46) 04/06/18 07:45 Microbiology 04/11/18 08:00 Blood - Peripheral Venous Blood Parasites Smear - Final 04/04/18 15:06 Blood - Peripheral Venous Blood Culture - Final NO GROWTH AFTER 5 DAYS INCUBATION 04/04/18 15:06 Blood - Peripheral Venous Blood Culture - Final NO GROWTH AFTER 5 DAYS INCUBATION 04/09/18 07:30 Blood - Peripheral Venous Blood Parasites Smear - Final Babesia Species 04/05/18 11:50 Stool Salmonella/Shigella Culture - Final 04/05/18 11:50 Stool Campylobacter Culture - Final NO GROWTH OF CAMPYLOBACTER SPECIES OBTAINED 04/05/18 11:50 Stool Yersinia Culture - Final NO GROWTH OF YERSINIA SPECIES OBTAINED 04/05/18 11:50 Stool Vibrio Culture - Final NO GROWTH OF VIBRIO SPECIES OBTAINED 04/05/18 11:50 Stool Escherichia coli 0157 Culture - Final NO GROWTH OF E COLI 0157 OBTAINED 04/07/18 12:31 Blood - Peripheral Venous Blood Parasites Smear - Preliminary Babesia Species 04/07/18 12:18 Stool Clostridium difficile Antigen (RADHA) - Final 04/07/18 12:18 Stool Clostridium difficile Toxin Assay - Final 04/05/18 14:14 Throat Throat Culture - Final NO BETA HEMOLYTIC STREPTOCOCCI ISOLATED 04/05/18 14:14 Throat Group A Strep Rapid Antigen - Final NEGATIVE FOR THE ANTIGEN OF BETA HEMOLYTIC STREP GROUP A 04/04/18 18:20 Urine - Urine Clean Catch Urine Culture - Final NO GROWTH OBTAINED 04/05/18 14:40 Nasopharyngeal Swab Respiratory Syncytial Virus Ag - Final 04/05/18 14:40 Nasopharyngeal Swab Influenza Types A,B Antigen - Final 04/05/18 14:40 Nasopharyngeal Swab - Final IMAGING chest/abd/pelvis ct: minimal atelactaic changes of the right lower lobe, mild pleural thickening in the left lung, moderate sized hiatus hernia, mild spleenomegly chest xray 04/06: athelactic changers to bilateral bases HOSPITAL COURSE: patient was admitted for an emergency department to a medical surgical floor for neutropenia, pancytopenia and sepsis. Blood smear was notable for babesia, infectious disease physician Dr. Vargas was consulted. The patient was started on mepron and repeat blood smear on April [address] 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 She was noted to have pancytopenia upon admission secondary to viral infection vs babesia. Patient was treated with zithromax and meropenem for superimposed infection. PLAN - discharge home with vns - continue zithromax and mepron for 7 days - follow-up with primary care physician and tire vulcanizer - Return precautions reviewed with patient and son Date of Admission:04/04/18 Date of Discharge: 04/14/18 Minutes to complete discharge: 45 Discharge Summary Reason For Visit: HYPO-OSMOLALITY AND HYPONATREMIA,NEUTROPENIA, UNSP Current Active Problems Cough (Acute) Diarrhea (Acute) FUO (fever of unknown origin) (Acute) Hyponatremia (Acute) Neutropenia (Acute) Throat pain (Acute) Thrombocytopenia (Acute) Condition: Stable - Instructions Diet, Activity, Other Instructions: continue regular diet continue mepron and zithromax as prescribed for 7 days please follow-up with your primary care physician, Dr. Velazquez within one week Please follow-up with your tire vulcanizer Dr. Stearns within 2 weeks if any new or persistent symptoms develop please return to emergency department Referrals: Terence Stearns MD [Staff Physician] - Braulio Velazquez MD [Primary Care Provider] - Disposition: HOME - Home Medications Comprehensive Discharge Medication List: Ambulatory Orders Ranitidine [Zantac -] 150 mg PO BID 06/05/16 This patient is new to me today: No Emergency Visit: Yes ED Registration Date: 04/04/18 Care time: The patient presented to the Emergency Department on the above date and was hospitalized for further evaluation of their emergent condition. Critical Care patient: No - Discharge Referral Referred to [facility] Med P.C[facility] No
[2018-04-14 14:09] VITALS: BP 94/40; PULSE 81; TEMP 98.4
[2018-04-27 16:53] LABS: PLATELET ESTIMATE SLT DECREASE
== END 2018-04-14 16:30 | disposition home or self-care (01) | DRG 872 ==
LOC: FER 10:04 → FM/S 13:40
PROVIDERS: ADMIT Specialist; ATTEND Nurse Practitioner Family
DX: A41.9 Sepsis, unspecified organism (principal); E87.1 Hypo-osmolality and hyponatremia; B60.0 Babesiosis; B37.0 Candidal stomatitis; D61.818 Other pancytopenia; R50.9 Fever, unspecified; D69.6 Thrombocytopenia, unspecified; K44.9 Diaphragmatic hernia without obstruction or gangrene; R19.7 Diarrhea, unspecified; E86.0 Dehydration; J06.9 Acute upper respiratory infection, unspecified; R16.1 Splenomegaly, not elsewhere classified; J02.8 Acute pharyngitis due to other specified organisms; K21.9 Gastro-esophageal reflux disease without esophagitis; D72.819 Decreased white blood cell count, unspecified; K57.90 Diverticulosis of intestine, part unspecified, without perforation or abscess without bleeding; M81.0 Age-related osteoporosis without current pathological fracture; G44.209 Tension-type headache, unspecified, not intractable; K75.81 Nonalcoholic steatohepatitis (NASH); R59.9 Enlarged lymph nodes, unspecified; E87.70 Fluid overload, unspecified; R94.5 Abnormal results of liver function studies; M79.1 Myalgia
CPT/HCPCS: 36415; 71046-TC-FY; 71250-TC; 74177-TC; 80048; 80053; 81003; 81015; 82570; 82607; 82728; 82747; 82784; 82930; 83540; 83550; 83605; 83615; 83690; 83735; 83930; 83935; 84100; 84155; 84156; 84157; 84165; 84300; 84439; 84443; 84550; 85014; 85025; 85027; 85044; 85384; 85610; 85730; 86644; 86645; 86663; 86664; 86665; 86666; 86747; 86753; 86850; 86900; 86901; 87040; 87045; 87046; 87070; 87086; 87186; 87207; 87324; 87420; 87430; 87449; 87804; 88300-TC; 93005; 93010; 94640; 97116-GP; 97161-GP; 99282-25; J0131; J1447; J7030; J7620

== ENCOUNTER 2020-06-29 05:07 | Day surgery (SDC) | payer OTHER, BC ==
[2020-06-27 11:56] VITALS: BMI 25.2
[2020-06-29 11:53] VITALS: TEMP 97.7
[2020-06-29 13:00] VITALS: BP 137/60; PULSE 66
--- NOTE | 2020-07-02 19:18 | PATH ---
Surgical Pathology Report Patient Name: NORMA DUTTA [facility]. Rec. #: [id number] /Age/Gender: 1945 (Age: 74) / F Account: [id number] Location: ASU-ENDOSCOPY Taken: 06/29/2020 Received: 06/29/2020 Reported: 07/02/2020 Physicians: Darcy Choi M.D. Specimen(s) Received A: BULB AND SECOND PORTION OF DUODENUM B: ANTRUM C: GE JUNCTION D: CAPUT OF CECUM POLYP E: ILEOCECAL VALVE POLYP F: RECTAL POLYP Clinical History Change in bowel habits, adenoma surveillance, dysphagia Postoperative diagnosis: GERD, hiatal hernia, diverticulosis, colonic polyps, hemorrhoids Final Diagnosis A. DUODENUM, SECOND PORTION AND BULB, BIOPSY: DUODENAL MUCOSA WITH MILD CHRONIC DUODENITIS AND PRESERVED VILLOUS ARCHITECTURE. B. STOMACH, ANTRUM, BIOPSY: GASTRIC ANTRAL MUCOSA WITH MILD CHRONIC GASTRITIS. IMMUNOHISTOCHEMICAL STAIN FOR H. PYLORI IS NEGATIVE. C. GE JUNCTION, BIOPSY: SQUAMOCOLUMNAR MUCOSA WITH MODERATE CHRONIC INFLAMMATION AND CHANGES OF MODERATE REFLUX ESOPHAGITIS. NO INTESTINAL METAPLASIA OR DYSPLASIA IDENTIFIED. D. CAPUT OF CECUM, POLYP, POLYPECTOMY: TUBULAR ADENOMA E. ILEOCECAL VALVE, BIOPSY: HYPERPLASTIC POLYP. F. RECTAL POLYP, BIOPSY: HYPERPLASTIC POLYP. Positive and negative controls (internal if applicable) show appropriate results. Electronically Signed Maryann Nguyễn M.D. Gross Description A. Received in formalin, labeled "biopsy bulb and second portion of duodenum" are 3 acharya, irregular portions of soft tissue ranging from 0.1-0.4 cm. in greatest dimension. The specimens are submitted in toto in one cassette. B. Received in formalin, labeled "biopsy antrum" is a acharya, irregular portion of soft tissue measuring 0.4 cm. in greatest dimension. The specimen is submitted in toto in one cassette. C. Received in formalin, labeled "biopsy GE junction" are 2 acharya, irregular portions of soft tissue measuring 0.3 and 0.5 cm. in greatest dimension. The specimens are submitted in toto in one cassette. D. Received in formalin, labeled "biopsy polyp of caput of cecum" are 3 acharya, irregular portions of soft tissue ranging from 0.3-0.6 cm. in greatest dimension. The specimens are submitted in toto in one cassette. E. Received in formalin, labeled "biopsy polyp of ileocecal valve" is a acharya, irregular portion of soft tissue measuring 0.2 cm. in greatest dimension. The specimen is submitted in toto in one cassette. F. Received in formalin, labeled "biopsy rectal polyp" is a acharya, irregular portion of soft tissue measuring 0.3 cm. in greatest dimension. The specimen is submitted in toto in one cassette. 06/29/2020 saudi06/29/2020
== END 2020-06-29 13:00 | disposition home or self-care (01) ==
LOC: JASU-ENDO 05:07
PROVIDERS: ATTEND Internal Medicine Gastroenterology
PROC: 0DBC8ZX Excision of Ileocecal Valve, Via Natural or Artificial Opening Endoscopic, Diagnostic (ICD-10-PCS; 2020-06-29)
PROC: 0DBN8ZX Excision of Sigmoid Colon, Via Natural or Artificial Opening Endoscopic, Diagnostic (ICD-10-PCS; 2020-06-29)
PROC: 0DB98ZX Excision of Duodenum, Via Natural or Artificial Opening Endoscopic, Diagnostic (ICD-10-PCS; 2020-06-29)
PROC: 0DB68ZX Excision of Stomach, Via Natural or Artificial Opening Endoscopic, Diagnostic (ICD-10-PCS; 2020-06-29)
PROC: 0DB48ZX Excision of Esophagogastric Junction, Via Natural or Artificial Opening Endoscopic, Diagnostic (ICD-10-PCS; 2020-06-29)
PROC: 0DBH8ZX Excision of Cecum, Via Natural or Artificial Opening Endoscopic, Diagnostic (ICD-10-PCS; principal; 2020-06-29 10:30)
DX: Z12.11 Encounter for screening for malignant neoplasm of colon (principal); Z86.010 Personal history of colon polyps; D12.0 Benign neoplasm of cecum; D12.5 Benign neoplasm of sigmoid colon; K57.30 Diverticulosis of large intestine without perforation or abscess without bleeding; K64.8 Other hemorrhoids; K29.80 Duodenitis without bleeding; K29.50 Unspecified chronic gastritis without bleeding; K21.00 Gastro-esophageal reflux disease with esophagitis, without bleeding
CPT/HCPCS: 88305-TC; 88342-TC